=== PATIENT | female | born 1965 | race Caucasian/White ===

== ENCOUNTER → 2016-05-10 | Outpatient (CLI) | payer OTHER ==
[~2016-05-10] VITALS: Ht 154.9 cm; Wt 54.5 kg
[~2016-05-10] MED LIST: ALPR.25 PO; ALPR1TAB3 PO; BETH10TA2 PO; BETH25TA2 PO; CALC1TAB87 PO; CLON0.5T PO; DULO1CAP3 PO; ESTR2TAB PO; GABA100C4 PO; GABA400C5 PO; HYDR-3133 PO; HYDR-3580 PO; HYDR-3583 PO; LOSA25TA PO; METF500T PO; MIDAZOLAM HCL 2 MG/2 ML VIAL IVS ONE; OMEP10CA PO; ONABOTULINUMTOXINA 100 UNIT OTHER SCH; ONABOTULINUMTOXINA INJ 100 UNITS/VIAL ONE; PROM12.54 PO; PROPOFOL 200 MG/20 ML AMP IV ONE; ROPI0.5T PO; TOPI1TAB31 PO; TOPI1TAB36 PO; TOPI1TAB97 PO; ZOFR4TAB PO
[2016-05-10 09:05] VITALS: BP 126/70; PULSE 72; RESP 16; TEMP 98.9; O2SAT 100
[2016-05-10 11:09] VITALS: TEMP 97.5
[2016-05-10 11:35] VITALS: BP 146/71; PULSE 78; RESP 16; O2SAT 99
== END ==
LOC: HEND 08:34
PROVIDERS: ATTEND Internal Medicine Gastroenterology
DX: K31.84 Gastroparesis (principal); K29.50 Unspecified chronic gastritis without bleeding; K31.9 Disease of stomach and duodenum, unspecified; K44.9 Diaphragmatic hernia without obstruction or gangrene; K21.9 Gastro-esophageal reflux disease without esophagitis; R10.13 Epigastric pain; R11.2 Nausea with vomiting, unspecified
CPT/HCPCS: 43236; 43239; 88305; 99156; 99157; J0585; J2250; 88312

== ENCOUNTER 2016-05-21 16:25 | Emergency (ER) | payer OTHER ==
[~2016-05-21] VITALS: Ht 157.5 cm; Wt 54.3 kg
[~2016-05-21 16:25] MED LIST changes: -ALPR.25 PO; -ALPR1TAB3 PO; -BETH25TA2 PO; -GABA100C4 PO; -GABA400C5 PO; -HYDR-3583 PO; -MIDAZOLAM HCL 2 MG/2 ML VIAL IVS ONE; -ONABOTULINUMTOXINA 100 UNIT OTHER SCH; -ONABOTULINUMTOXINA INJ 100 UNITS/VIAL ONE; -PROPOFOL 200 MG/20 ML AMP IV ONE; -TOPI1TAB36 PO; -ZOFR4TAB PO
[2016-05-21 16:28] VITALS: BP 120/57; PULSE 85; RESP 16; TEMP 99.1; O2SAT 99
[2016-05-21] MEDS ORDERED: GABA100C4 PO (16:50)
[2016-05-21] MEDS ORDERED: PROMETHAZINE INJ 25 MG/ML VIAL IM ONE (17:00)
[2016-05-21] MEDS ORDERED: ONDANSETRON HCL 4 MG/2 ML VIAL IM ONE (17:00)
--- NOTE | 2016-05-21 17:06 | PD ---
HPI Chief Complaint: Abdominal Pain Time Seen by Provider: 16:34 Travel History International Travel<30 days: No Contact w/Intl Traveler<30days: No Traveled to known affect area: No History of Present Illness HPI The patient was seen and examined in the presence of the nurse. Patient complains of flaring of her gastroparesis. She has a chronic problem gastroparesis and follows with GI. She recently had endoscopy and had Botox injections during endoscopy for this reason. She also complains of sinus infections. She has nasal congestion and some runny nose. She just finished 7 days of antibiotics and it hasn't helped. Symptom severity is moderate PFSH Past Medical History Hx Anticoagulant Therapy: No Blood Disorders: No Anxiety: Yes Depression: Yes Heart Rhythm Problems: Yes (TACHYCARDIA) Cancer: No Cardiovascular Problems: Yes (HTN) Chest Pain: Yes Diabetes: No Diminished Hearing: No Endocrine: No Fibromyalgia: Yes Gastrointestinal Disorders: Yes (ACID REFLUX, NAUSEA; gastroparesis) GERD: Yes Glaucoma: No Genitourinary: Yes (BLADDER LIFT, INCONTINENCE) Hepatitis: No Hiatal Hernia: Yes Hypertension: Yes Immune Disorder: Yes (FIBROMYALGIA) Implanted Vascular Access Dvce: No Musculoskeletal: Yes (BACK PAIN ; FIBROMYALGIA, ARTHRITIS) Neurologic: Yes ( RESTLESS LEG SYNDROME,MIGRAINES) Psychiatric: Yes (CLAUSTROPHOBIC/ANXIETY) Reproductive: No Respiratory: Yes (SLEEP APNEA--C PAP) Immunizations Current: No Thyroid Disease: No Influenza Vaccination: No ?: Not Menopausal: Yes Past Surgical History Abdominal Surgery: Yes (EXPLORATORY LAP,APPENDECTOMY) AICD: No Body Medical Devices: INTERSTEM RIGHT BUTTOCK Cardiac Surgery: No Section: Yes Ear Surgery: No Endocrine Surgery: No Eye Surgery: No Genitourinary Surgery: Yes (BLADDER SUSP., URETHRAL DILATION) Gynecologic Surgery: Yes (; TAHBSO) Hysterectomy: Yes Joint Replacement: No Neurologic Surgery: No Oral Surgery: No Pacemaker: No Thoracic Surgery: No Other Surgery: Yes (HYSTERECTOMY 94) Social History Alcohol Use: Yes (OCC) Tobacco Use: Yes (1PPD, CIGARETTES X 31 YEARS) Substance Use: No Allergies-Medications (Allergen,Severity, Reaction): Coded Allergies: Bee Sting (Verified Allergy, Severe, Anaphylaxis, 05/21/16) Vitamin D (Verified Allergy, Severe, HIVES, 05/21/16) Desipramine (Verified Allergy, Intermediate, BLISTERS, 05/21/16) Reported Meds & Prescriptions Reported Meds & Active Scripts Active Reported Gabapentin 100 Mg Cap 100 Mg PO BID Hydroxyzine HCl 25 Mg Tab 25 Mg PO QID PRN Promethazine (Promethazine HCl) 12.5 Mg Tab 12.5 Mg PO Q4H PRN Estradiol 2 Mg Tab 2 Mg PO DAILY Omeprazole 10 Mg Cap 20 Mg PO BID Ropinirole 0.5 Mg Tab 0.5 Mg PO BID Clonazepam 0.5 Mg Tab 0.5 Mg PO HS Losartan (Losartan Potassium) 25 Mg Tab 25 Mg PO DAILY Calcium 600 with Vitamin D (Calcium Carbonate-Cholecalciferol) 600-400 mg-Unit Tab 1 Tab PO DAILY Topiramate 100 Mg Tab 125 Mg PO HS Topiramate 25 Mg Tab 25 Mg PO DAILY Duloxetine DR (Duloxetine HCl) 60 Mg Capdr 60 Mg PO DAILY Bethanechol 10 Mg Tab 10 Mg PO TID Hydrocodone-Acetaminophen 7.5-325 mg Tab 1 Tab PO TID PRN Review of Systems General / Constitutional: No: Fever HENT: No: Headaches Cardiovascular: No: Chest Pain or Discomfort Physical Exam Narrative GASTROINTESTINAL: Abdomen soft, non-tender, nondistended. Positive bowel sounds. No hepato-splenomegaly, or palpable masses. No guarding. SKIN: Inspection shows no rash or ulcers. Palpation shows no induration or nodules. NECK: Symmetrical appearance, midline trachea. No mass or crepitus. Thyroid without enlargement, tenderness, or mass. Throat clear Minimal rhinorrhea in the nares Data Data Last Documented VS Vital Signs Date Time Temp Pulse Resp B/P Pulse Ox O2 Delivery O2 Flow Rate FiO2 05/21/16 16:50 16 05/21/16 16:28 99.1 85 120/57 99 Orders Ondansetron Inj (Zofran Inj) (05/21/16 17:00) Promethazine Inj (Phenergan Inj) (05/21/16 17:00) MDM Medical Decision Making Medical Screen Exam Complete: Yes Emergency Medical Condition: Yes Medical Record Reviewed: Yes Differential Diagnosis Gastroparesis, ileus, colitis Narrative Course I have reviewed the patient's electronic medical record. Patient's abdomen is soft and benign and nontender She has normal vital signs and looks euvolemic No indication for emergent studies Gave her Zofran injection and prescription for same Diagnosis Primary Impression: Gastroparesis Additional Impression: Rhinitis Qualified Code: J31.0 - Rhinitis, unspecified type Additional Instructions: The patient was advised to follow up with their physician and return if they worsen. Med/Other Pt SpecificInfo: Prescription(s) given Disposition: 01 DISCHARGE HOME Condition: Stable Trev Herrera MD May 21, 2016 17:05
[2016-05-21] MEDS ORDERED: ZOFR4TAB PO (17:09)
[2016-07-31] MEDS ORDERED: ALPR.25 PO (11:10)
[2016-09-18] MEDS ORDERED: GABA400C5 PO (10:57)
[2016-09-18] MEDS ORDERED: TOPI1TAB36 PO (10:57)
[2016-10-11] MEDS ORDERED: HYDR-3583 PO (14:50)
[2016-10-11] MEDS ORDERED: ALPR1TAB3 PO (14:50)
[2016-10-11] MEDS ORDERED: BETH25TA2 PO (14:50)
== END 2016-05-21 17:19 | disposition home or self-care (01) ==
LOC: PHED 16:25
DX: J31.0 Chronic rhinitis (principal); K31.84 Gastroparesis; I10 Essential (primary) hypertension; R00.0 Tachycardia, unspecified; M79.7 Fibromyalgia; K21.9 Gastro-esophageal reflux disease without esophagitis; K44.9 Diaphragmatic hernia without obstruction or gangrene; G47.30 Sleep apnea, unspecified; F17.210 Nicotine dependence, cigarettes, uncomplicated
CPT/HCPCS: 96372; 99283; J2405

== ENCOUNTER 2016-06-11 16:17 | Emergency (ER) | payer OTHER ==
[~2016-06-11] VITALS: Ht 157.5 cm; Wt 54.0 kg
[~2016-06-11 16:17] MED LIST changes: +GABA100C4 PO; -METF500T PO; +ZOFR4TAB PO
[2016-06-11 16:26] VITALS: BP 113/73; PULSE 104; RESP 20; TEMP 99.5; O2SAT 100
[2016-06-11] MEDS ORDERED: SODIUM CHLORIDE 0.9% FLUSH 5 ML FLUSH IVF PRN (17:15)
[2016-06-11] MEDS ORDERED: PROCHLORPERAZINE INJ 10 MG/2 ML VIAL IVS ONE (17:15)
[2016-06-11] MEDS ORDERED: diphenhydrAMINE HCL 50 MG/ML VIAL IV PUSH ONE (17:15)
[2016-06-11] MEDS ORDERED: PANTOPRAZOLE SODIUM 40 MG VIAL IV PUSH ONE (17:30)
[2016-06-11] MEDS ORDERED: METOCLOPRAMIDE HCL 10 MG/2 ML VIAL IV PUSH ONE (17:30)
--- NOTE | 2016-06-11 17:34 | PD ---
HPI . Epigastric pain Chief Complaint: Abdominal Pain Time Seen by Provider: 17:06 Travel History International Travel<30 days: No Contact w/Intl Traveler<30days: No Traveled to known affect area: No History of Present Illness HPI The patient presents with recurrent epigastric pain radiating through to her back. Her current symptoms started last night. She reports nausea without vomiting. She denies fever. Pain is exacerbated by eating. It is slightly improved with Tums. PFSH Past Medical History Hx Anticoagulant Therapy: No Blood Disorders: No Anxiety: Yes Depression: Yes Heart Rhythm Problems: Yes (TACHYCARDIA) Cancer: No Cardiovascular Problems: Yes (HTN) Chest Pain: Yes Diabetes: No Diminished Hearing: No Endocrine: No Fibromyalgia: Yes Gastrointestinal Disorders: Yes (ACID REFLUX, NAUSEA; gastroparesis) GERD: Yes Glaucoma: No Genitourinary: Yes (BLADDER LIFT, INCONTINENCE) Hepatitis: No Hiatal Hernia: Yes Hypertension: Yes Immune Disorder: Yes (FIBROMYALGIA) Implanted Vascular Access Dvce: No Medical other: No Musculoskeletal: Yes (BACK PAIN ; FIBROMYALGIA, ARTHRITIS) Neurologic: Yes ( RESTLESS LEG SYNDROME,MIGRAINES) Psychiatric: Yes (CLAUSTROPHOBIC/ANXIETY) Reproductive: No Respiratory: Yes (SLEEP APNEA--C PAP) Immunizations Current: No Thyroid Disease: No Influenza Vaccination: No ?: Not Menopausal: Yes Past Surgical History Abdominal Surgery: Yes (EXPLORATORY LAP,APPENDECTOMY) AICD: No Body Medical Devices: INTERSTEM RIGHT BUTTOCK Cardiac Surgery: No Section: Yes Ear Surgery: No Endocrine Surgery: No Eye Surgery: No Genitourinary Surgery: Yes (BLADDER SUSP., URETHRAL DILATION) Gynecologic Surgery: Yes (; TAHBSO) Hysterectomy: Yes Joint Replacement: No Neurologic Surgery: No Oral Surgery: No Pacemaker: No Thoracic Surgery: No Other Surgery: Yes (HYSTERECTOMY 94) Social History Alcohol Use: Yes (OCC) Tobacco Use: Yes (1PPD, CIGARETTES X 31 YEARS) Substance Use: No Allergies-Medications (Allergen,Severity, Reaction): Coded Allergies: Bee Sting (Verified Allergy, Severe, Anaphylaxis, 06/11/16) Vitamin D (Verified Allergy, Severe, HIVES, 06/11/16) Desipramine (Verified Allergy, Intermediate, BLISTERS, 06/11/16) Reported Meds & Prescriptions Reported Meds & Active Scripts Active Zofran (Ondansetron HCl) 4 Mg Tab 4 Mg PO Q6HR PRN Reported Gabapentin 100 Mg Cap 100 Mg PO BID Hydroxyzine HCl 25 Mg Tab 25 Mg PO QID PRN Promethazine (Promethazine HCl) 12.5 Mg Tab 12.5 Mg PO Q4H PRN Estradiol 2 Mg Tab 2 Mg PO DAILY Omeprazole 10 Mg Cap 20 Mg PO BID Ropinirole 0.5 Mg Tab 0.5 Mg PO BID Clonazepam 0.5 Mg Tab 0.5 Mg PO HS Losartan (Losartan Potassium) 25 Mg Tab 25 Mg PO DAILY Calcium 600 with Vitamin D (Calcium Carbonate-Cholecalciferol) 600-400 mg-Unit Tab 1 Tab PO DAILY Topiramate 100 Mg Tab 100 Mg PO HS Duloxetine DR (Duloxetine HCl) 60 Mg Capdr 60 Mg PO DAILY Bethanechol 10 Mg Tab 10 Mg PO TID Hydrocodone-Acetaminophen 7.5-325 mg Tab 1 Tab PO TID PRN Review of Systems Except as stated in HPI: all other systems reviewed are Neg General / Constitutional: No: Fever, Chills Cardiovascular: Positive: Chest Pain or Discomfort (she describes heartburn) Respiratory: No: Shortness of Breath Gastrointestinal: Positive: Nausea, Abdominal Pain, Indigestion, No: Vomiting , Diarrhea Genitourinary: No: Urgency, Frequency, Dysuria Physical Exam Narrative GENERAL: Thin woman who does not appear to be in any acute distress. SKIN: Warm and dry. HEAD: Atraumatic. Normocephalic. EYES: Pupils equal and round. Sclera are anicteric. ENT: No nasal bleeding or discharge. Mucous membranes pink and moist. NECK: Trachea midline. Neck is supple. CARDIOVASCULAR: Regular rate and rhythm. Heart sounds are normal. RESPIRATORY: No accessory muscle use. Lungs are clear with full air movement throughout. GASTROINTESTINAL: Abdomen soft. Epigastric tenderness. No guarding or rebound. Normal bowel sounds. Nondistended. MUSCULOSKELETAL: No obvious deformities. No edema. NEUROLOGICAL: Awake and alert. No obvious cranial nerve deficits. Motor grossly within normal limits. Normal speech. PSYCHIATRIC: Appropriate mood and affect; insight and judgment normal. Data Data Last Documented VS Vital Signs Date Time Temp Pulse Resp B/P Pulse Ox O2 Delivery O2 Flow Rate FiO2 06/11/16 17:53 18 98 Room Air 06/11/16 17:51 88 144/71 06/11/16 16:26 99.5 Orders Complete Blood Count With Diff (06/11/16 17:06) Comprehensive Metabolic Panel (06/11/16 17:06) Lipase (06/11/16 17:06) Iv Access Insert/Monitor (06/11/16 17:06) Ecg Monitoring (06/11/16 17:06) Oximetry (06/11/16 17:06) Sodium Chloride 0.9% Flush (Ns Flush) (06/11/16 17:15) Electrocardiogram (06/11/16 17:06) Prochlorperazine Inj (Compazine Inj) (06/11/16 17:15) Diphenhydramine Inj (Benadryl Inj) (06/11/16 17:15) Metoclopramide Inj (Reglan Inj) (06/11/16 17:30) Pantoprazole Inj (Protonix Inj) (06/11/16 17:30) Lorazepam Inj (Ativan Inj) (06/11/16 18:30) Labs Laboratory Tests Test 06/11/16 17:40 White Blood Count 8.4 TH/MM3 Red Blood Count 3.97 MIL/MM3 Hemoglobin 12.4 GM/DL Hematocrit 37.2 % Mean Corpuscular Volume 93.6 FL Mean Corpuscular Hemoglobin 31.4 PG Mean Corpuscular Hemoglobin 33.5 % Concent Red Cell Distribution Width 12.9 % Platelet Count 201 TH/MM3 Mean Platelet Volume 7.6 FL Neutrophils (%) (Auto) 63.0 % Lymphocytes (%) (Auto) 29.9 % Monocytes (%) (Auto) 5.4 % Eosinophils (%) (Auto) 1.3 % Basophils (%) (Auto) 0.4 % Neutrophils # (Auto) 5.3 TH/MM3 Lymphocytes # (Auto) 2.5 TH/MM3 Monocytes # (Auto) 0.5 TH/MM3 Eosinophils # (Auto) 0.1 TH/MM3 Basophils # (Auto) 0.0 TH/MM3 CBC Comment DIFF FINAL Differential Comment Sodium Level 142 MEQ/L Potassium Level 3.4 MEQ/L Chloride Level 109 MEQ/L Carbon Dioxide Level 25.6 MEQ/L Anion Gap 7 MEQ/L Blood Urea Nitrogen 18 MG/DL Creatinine 0.80 MG/DL Estimat Glomerular Filtration 76 ML/MIN Rate Random Glucose 100 MG/DL Calcium Level 8.5 MG/DL Total Bilirubin 0.4 MG/DL Aspartate Amino Transf 16 U/L (AST/SGOT) Alanine Aminotransferase 21 U/L (ALT/SGPT) Alkaline Phosphatase 56 U/L Total Protein 6.9 GM/DL Albumin 3.5 GM/DL Lipase 91 U/L MDM Medical Decision Making Medical Screen Exam Complete: Yes Emergency Medical Condition: Yes Medical Record Reviewed: Yes (patient had a gastric emptying study done in November 2015 which showed delayed emptying. She had a myocardial perfusion scan also in November which was normal and showed an ejection fraction greater than 70% . She had an EGD done on November 17, 2015 which showed reflux esophagitis and gastritis. There was no mention of stenosis.) Interpretation(s) EKG shows a normal sinus rhythm with no ST segment elevation or depression. Differential Diagnosis Differential diagnosis of abdominal pain includes but is not limited to gastritis, pancreatitis, hepatitis, gastroenteritis, gallbladder disease, constipation, urinary retention, UTI, peptic ulcer disease, diverticulitis or appendicitis Narrative Course Patient presents with recurrent epigastric pain radiating through to her back. She has a diagnosis of gastroparesis. She is status post Botox injections in her stomach for the gastroparesis. The patient takes numerous medications. The ones pertinent to her current complaint include hydrocodone 7.5 mg every 6 hours as needed, Prilosec, Zofran, Phenergan. CBC & BMP Diagram 06/11/16 17:40 LFTs and lipase were normal. Patient reports no relief in her symptoms with Reglan and Protonix. The patient now appears to be resting comfortably following Ativan. I have not found an acute problem here tonight. She seems to be having an acute exacerbation of a chronic problem. She needs to follow with her etiquette teacher. Diagnosis Primary Impression: Epigastric pain Patient Instructions: Epigastric Pain (ED), General Instructions Disposition: 01 DISCHARGE HOME Condition: Stable Bronwyn Mathew MD Jun 11, 2016 17:34
[2016-06-11 17:49] LABS: AUTOMATED NEUTROPHIL # 5.3 TH/MM3 (1.8-7.7); BASOPHIL % 0.4 % (0.0-2.0); EOSINOPHIL # 0.1 TH/MM3 (0-0.4); EOSINOPHIL % 1.3 % (0.0-4.0); HEMATOCRIT 37.2 % (35.0-46.0); HEMO FLAGS DIFF FINAL; LYMPH % 29.9 % (9.0-44.0); LYMPHOCYTE # 2.5 TH/MM3 (1.0-4.8); MEAN CELL VOLUME 93.6 FL (80.0-100.0); MEAN CORPUSCULAR HEMOGLOBIN 31.4 PG (27.0-34.0); MEAN CORPUSCULAR HGB CONC 33.5 % (32.0-36.0); MONO % 5.4 % (0.0-8.0); PLATELET COUNT 201 TH/MM3 (150-450); RED BLOOD COUNT 3.97 MIL/MM3 (4.00-5.30); RED CELL DISTRIBUTION WIDTH 12.9 % (11.6-17.2); WHITE BLOOD COUNT 8.4 TH/MM3 (4.0-11.0)
[2016-06-11 17:51] VITALS: BP 144/71; PULSE 88; RESP 18; O2SAT 98
[2016-06-11 17:53] VITALS: RESP 18; O2SAT 98
[2016-06-11 17:57] LABS: CHLORIDE 109 MEQ/L (98-107); POTASSIUM 3.4 MEQ/L (3.5-5.1); SODIUM (NA) 142 MEQ/L (136-145)
[2016-06-11 18:01] LABS: ANION GAP 7 MEQ/L (5-15); BICARBONATE 25.6 MEQ/L (21.0-32.0); BLOOD UREA NITROGEN 18 MG/DL (7-18)
[2016-06-11 18:04] LABS: ALT (GPT) 21 U/L (10-53); AST (GOT) 16 U/L (15-37); GLOMERULAR FILTRATION RATE 76 ML/MIN (>89)
[2016-06-11 18:05] LABS: TOTAL BILIRUBIN ADULT 0.4 MG/DL (0.2-1.0)
[2016-06-11 18:07] LABS: ALKALINE PHOSPHATASE 56 U/L (45-117)
[2016-06-11] MEDS ORDERED: LORazepam 2 MG/ML VIAL IV PUSH ONE (18:30)
[2016-06-11 19:15] VITALS: BP 135/74; PULSE 83; RESP 18; O2SAT 98
--- NOTE | 2016-06-12 12:39 | EKG ---
Date Performed: 06/11/2016 Time Performed: 17:19:24 PTAGE: 50 years EKG: Sinus rhythm ST junctional depression is nonspecific Borderline ECG Compared to prior tracing no significant love ge PREVIOUS TRACING : 02/29/2016 16.26 DOCTOR: Len Pinto Interpretating Date/Time 06/12/2016 12:35:18
[2016-07-31] MEDS ORDERED: ALPR.25 PO (11:10)
[2016-09-18] MEDS ORDERED: TOPI1TAB36 PO (10:57)
[2016-09-18] MEDS ORDERED: GABA400C5 PO (10:57)
[2016-10-11] MEDS ORDERED: ALPR1TAB3 PO (14:50)
[2016-10-11] MEDS ORDERED: HYDR-3583 PO (14:50)
[2016-10-11] MEDS ORDERED: BETH25TA2 PO (14:50)
== END 2016-06-11 20:07 | disposition home or self-care (01) ==
LOC: PHED 16:17
DX: R10.13 Epigastric pain (principal)
CPT/HCPCS: 80053; 83690; 85025; 93005; 96374; 96375; 99284; C9113; J2060; J2765

== ENCOUNTER → 2016-10-12 | Day surgery (SDC) | payer OTHER ==
[~2016-10-12] VITALS: Ht 157.5 cm; Wt 54.1 kg
[~2016-10-12] MED LIST changes: +*ONDANSETRON 4 MG VIAL PERIprocedural Use ONLY ONE; +*morphine SULFATE 8 MG/ML PERIprocedure ONLY ONE; +ALPR1TAB3 PO; +BELLADONNA ALKALOIDS/OPIUM 60 MG SUPP RECTAL ONE; +BELLADONNA ALKALOIDS/OPIUM 60 MG SUPP RECTAL SCH; -BETH10TA2 PO; +BETH25TA2 PO; +CHLORHEXIDINE GLUCONATE 2 % 1 PACK (2 CLOTHS) TOPICAL PRN; -CLON0.5T PO; +DEXAMETHASONE SOD PHOS 4 MG/ML VIAL ONE; +DO NOT ADM ANY ANTICOAGULANT DRUGS PRN; +FAMOTIDINE 20 MG/2 ML VIAL ONE; -GABA100C4 PO; +GABA400C5 PO; -HYDR-3133 PO; -HYDR-3580 PO; +HYDR-3583 PO; +HYDROmorphone HCL PF 2 MG/ML VIAL ONE; +INSULIN HUMAN REGULAR 1,000 UNITS/10 ML VIAL SQ PRN; +LACTATED RINGER'S 1000 ML INJ 1,000 ML IV ONE; +LACTATED RINGER'S 1000 ML IV PRN; +METOPROLOL TARTRATE 25 MG TAB PO PRN; +MIDAZOLAM HCL 2 MG/2 ML VIAL ONE; -OMEP10CA PO; +ONABOTULINUMTOXINA INJ 100 UNITS/VIAL SCH; +ONDANSETRON HCL 4 MG/2 ML VIAL IV PUSH ONE; +ONDANSETRON HCL 4 MG/2 ML VIAL IV PUSH PRN; +POVIDONE IODINE 5% (ANTISEPSIS KIT) 4 APPLICATIONS EACH NARE PRN; +PROPOFOL 200 MG/20 ML AMP IV ONE; -ROPI0.5T PO; +SODIUM CHLORID 0.9% 500 ML IV PRN; +SODIUM CHLORIDE 0.9% 20 ML VIAL ONE; -TOPI1TAB31 PO; +TOPI1TAB36 PO; -TOPI1TAB97 PO; +ceFAZolin 1,000 MG/NS 100 ML IV SCH; +ePHEDrine/NS 25 MG/5 ML SYR IV ONE; +fentaNYL CITRATE 250 MCG/5 ML AMP ONE
[2016-10-12 06:21] VITALS: BP 142/86; PULSE 72; RESP 18; TEMP 99; O2SAT 98
[2016-10-12 06:25] LABS: AUTOMATED NEUTROPHIL # 3.7 TH/MM3 (1.8-7.7); BASOPHIL % 0.7 % (0.0-2.0); EOSINOPHIL # 0.2 TH/MM3 (0-0.4); EOSINOPHIL % 2.4 % (0.0-4.0); HEMATOCRIT 38.9 % (35.0-46.0); HEMO FLAGS DIFF FINAL; LYMPH % 35.9 % (9.0-44.0); LYMPHOCYTE # 2.5 TH/MM3 (1.0-4.8); MEAN CELL VOLUME 96.9 FL (80.0-100.0); MONO % 7.8 % (0.0-8.0); NEUT % 53.2 % (16.0-70.0); PLATELET COUNT 207 TH/MM3 (150-450); RED BLOOD COUNT 4.02 MIL/MM3 (4.00-5.30); RED CELL DISTRIBUTION WIDTH 13.7 % (11.6-17.2)
--- NOTE | 2016-10-12 08:34 | PD.OP ---
Operative Report Date of Surgery: Oct 12, 2016 Preoperative Diagnosis: Overactive bladder Postoperative Diagnosis: Same Procedure: Cystoscopy with Botox injection to the bladder wall Anesthesia: Gen. LMA Surgeon: Massimo Smith Business Services Tech(s): None Resident Surgeon: None Operation and Findings: 50-year-old female with history of overactive bladder. She said InterStim therapy in the past and failed multiple anticholinergics. She's here today to undergo Botox injection to the bladder. Risk and benefits were discussed preoperatively and she was willing to proceed. Patient was brought to the operating room and placed in the dorsal lithotomy position. She was prepped and draped in usual sterile fashion and received preprocedure antibiotics as well as general LMA anesthesia. 19 [place] cystoscope was inserted in the bladder morocho cystoscopy did not reveal any abnormalities. Using the Coloplast needle for bladder wall injection, Botox was injected into the posterior bladder wall in 2 rows. A total of 200 mg Botox was utilized. There were no complications and she tolerated procedure well. There is no bleeding at the end of the procedure. She was awoken and transferred [facility] stable condition. She'll follow-up in the office in 2-3 months. Massimo Smith DO Oct 12, 2016 08:34
[2016-10-12 10:16] VITALS: BP 110/54; PULSE 64; RESP 16; TEMP 97.3; O2SAT 94
== END | disposition home or self-care (01) ==
LOC: HSDC 05:31
PROVIDERS: ATTEND Urology
DX: N32.81 Overactive bladder (principal)
CPT/HCPCS: 00910; 52287; 85025; J0585; J0690; J1100; J1170; J2250; J2270; J2405; J3010; J7120

== ENCOUNTER 2016-11-20 16:18 | Observation (INO) | payer OTHER ==
[~2016-11-20] VITALS: Ht 162.6 cm; Wt 52.0 kg
[~2016-11-20 16:18] MED LIST changes: -*ONDANSETRON 4 MG VIAL PERIprocedural Use ONLY ONE; -*morphine SULFATE 8 MG/ML PERIprocedure ONLY ONE; -BELLADONNA ALKALOIDS/OPIUM 60 MG SUPP RECTAL ONE; -BELLADONNA ALKALOIDS/OPIUM 60 MG SUPP RECTAL SCH; -CALC1TAB87 PO; -CHLORHEXIDINE GLUCONATE 2 % 1 PACK (2 CLOTHS) TOPICAL PRN; -DEXAMETHASONE SOD PHOS 4 MG/ML VIAL ONE; -DO NOT ADM ANY ANTICOAGULANT DRUGS PRN; -FAMOTIDINE 20 MG/2 ML VIAL ONE; -HYDROmorphone HCL PF 2 MG/ML VIAL ONE; -INSULIN HUMAN REGULAR 1,000 UNITS/10 ML VIAL SQ PRN; -LACTATED RINGER'S 1000 ML INJ 1,000 ML IV ONE; -LACTATED RINGER'S 1000 ML IV PRN; -METOPROLOL TARTRATE 25 MG TAB PO PRN; -MIDAZOLAM HCL 2 MG/2 ML VIAL ONE; -ONABOTULINUMTOXINA INJ 100 UNITS/VIAL SCH; -ONDANSETRON HCL 4 MG/2 ML VIAL IV PUSH ONE; -ONDANSETRON HCL 4 MG/2 ML VIAL IV PUSH PRN; -POVIDONE IODINE 5% (ANTISEPSIS KIT) 4 APPLICATIONS EACH NARE PRN; -PROM12.54 PO; -PROPOFOL 200 MG/20 ML AMP IV ONE; -SODIUM CHLORID 0.9% 500 ML IV PRN; -SODIUM CHLORIDE 0.9% 20 ML VIAL ONE; -ceFAZolin 1,000 MG/NS 100 ML IV SCH; -ePHEDrine/NS 25 MG/5 ML SYR IV ONE; -fentaNYL CITRATE 250 MCG/5 ML AMP ONE
[2016-11-20 17:11] VITALS: BP 134/79; PULSE 82; RESP 28; O2SAT 100
[2016-11-20] MEDS ORDERED: SODIUM CHLOR 0.9% 1000 ML INJ 1,000 ML IV ONE (17:14)
[2016-11-20 17:23] VITALS: BP 134/79; PULSE 74; RESP 21; O2SAT 99
--- NOTE | 2016-11-20 17:27 | PD ---
HPI Chief Complaint: Neuro Symptoms/ Deficits Time Seen by Provider: 17:14 Travel History International Travel<30 days: No Contact w/Intl Traveler<30days: No Traveled to known affect area: No History of Present Illness HPI This is a 51-year-old female who presents from her hand surgeon's office after she had an acute episode of confusion. According to the , she was being seen and evaluated at Dr. Sharp's office for a follow up appointment for her carpal tunnel surgery. She [place] through the exam developed acute confusion and did not recognize anyone and even did not recognize her . reports that upon arrival she seemed much less agitated and confused however is still not at her baseline level. She does know the day of week, her name, where she is area she did not know the current president but was able to tell me that Dami was the previous president. She also thought it was 2019. She is holding her arm in a flexed position stating that it is painful. states that over the last 2 days she is complaining the pain from her shoulder up to her back of her neck. He also reported that she was having pain down her arm on the right side. He attributed this to her carpal tunnel surgery. He reports that she had had a CT scan done in the past that he remarks was told that she may have had previous "TIAs". She is on antidepressant medicines. She also is being treated for restless leg syndrome. Please note that one of our nurses whose friends with her family, spoke with the patient last night. She states that she Repeating the same thing over and over again. She thought at that time it was odd but did not put too and 2 together. Patient was prescribed duloxetine was taking it daily however her psychiatrist had decreased it to once every other day. states that she had not taken any since of last week. He states that they did cigar packer and picker the medication today and she took her first dose since . PFSH Past Medical History Hx Anticoagulant Therapy: No Blood Disorders: No Anxiety: Yes Depression: Yes Heart Rhythm Problems: Yes (TACHYCARDIA) Cancer: No Cardiovascular Problems: Yes (HTN) Chest Pain: Yes Diabetes: No Diminished Hearing: No Endocrine: No Fibromyalgia: Yes Gastrointestinal Disorders: Yes (ACID REFLUX, NAUSEA; gastroparesis) GERD: Yes Glaucoma: No Genitourinary: Yes (BLADDER LIFT, INCONTINENCE) Hepatitis: No Hiatal Hernia: Yes Hypertension: Yes Immune Disorder: Yes (FIBROMYALGIA) Implanted Vascular Access Dvce: No Musculoskeletal: Yes (BACK PAIN ; FIBROMYALGIA, ARTHRITIS) Neurologic: Yes ( RESTLESS LEG SYNDROME,MIGRAINES) Psychiatric: Yes (CLAUSTROPHOBIC/ANXIETY) Reproductive: No Respiratory: Yes (SLEEP APNEA--C PAP) Immunizations Current: No Thyroid Disease: No Menopausal: Yes Past Surgical History Abdominal Surgery: Yes (EXPLORATORY LAP,APPENDECTOMY) AICD: No Body Medical Devices: INTERSTEM RIGHT BUTTOCK Cardiac Surgery: No Section: Yes Ear Surgery: No Endocrine Surgery: No Eye Surgery: No Genitourinary Surgery: Yes (BLADDER SUSP., URETHRAL DILATION, INTERSTEM PLACEMENT AND REMOVAL) Gynecologic Surgery: Yes (; TAHBSO) Hysterectomy: Yes Joint Replacement: No Neurologic Surgery: No Oral Surgery: No Pacemaker: No Thoracic Surgery: No Other Surgery: Yes (HYSTERECTOMY 94) Social History Alcohol Use: Yes (OCC) Tobacco Use: Yes (1PPD, CIGARETTES X 31 YEARS) Substance Use: No Allergies-Medications (Allergen,Severity, Reaction): Coded Allergies: Bee Sting (Verified Allergy, Severe, Anaphylaxis, 10/12/16) Vitamin D (Verified Allergy, Severe, HIVES, 10/12/16) Desipramine (Verified Allergy, Intermediate, BLISTERS, 10/12/16) Reported Meds & Prescriptions Reported Meds & Active Scripts Active Zofran (Ondansetron HCl) 4 Mg Tab 4 Mg PO Q6HR PRN Reported Bethanechol 25 Mg Tab 25 Mg PO Q8HR Hydrocodone-Acetaminophen 10-325 mg Tab 1 Tab PO Q4H PRN Alprazolam 1 Mg Tab 1 Mg PO BID Topiramate 50 Mg Tab 100 Mg PO HS Gabapentin 400 Mg Cap 400 Cap PO BID Estradiol 2 Mg Tab 2 Mg PO DAILY Losartan (Losartan Potassium) 25 Mg Tab 25 Mg PO DAILY Duloxetine DR (Duloxetine HCl) 60 Mg Capdr 60 Mg PO DAILY Review of Systems ROS Limitations: Clinical Condition Except as stated in HPI: all other systems reviewed are Neg Eyes: No: Diploplia HENT: Positive: Headaches, Neck Pain (right sided and up her right lateral neck from her shoulder) Cardiovascular: No: Chest Pain or Discomfort, Palpitations Respiratory: No: Cough, Shortness of Breath Gastrointestinal: No: Nausea, Vomiting, Diarrhea Genitourinary: No: Dysuria, Incontinence Musculoskeletal: Positive: Pain (right arm and shoulder pain), No: Weakness Neurologic: Positive: Headache, Change in Mentation, No: Weakness, Incontinence, Seizures Psychiatric: Positive: Disorder of Thought (acute onset) Physical Exam Narrative GENERAL: Well-developed well-nourished female in no acute respiratory distress. The patient appears agitated and confused. SKIN: Focused skin assessment warm/dry. HEAD: Atraumatic. Normocephalic. EYES: Pupils equal and round. No scleral icterus. No injection or drainage. ENT: No nasal bleeding or discharge. Mucous membranes pink and moist. NECK: Trachea midline. Supple. CARDIOVASCULAR: Regular rate and rhythm. No murmur appreciated. RESPIRATORY: No accessory muscle use. Clear to auscultation. Breath sounds equal bilaterally. GASTROINTESTINAL: Abdomen soft, non-tender, nondistended. MUSCULOSKELETAL: No obvious deformities. No clubbing. No cyanosis. No edema. NEUROLOGICAL: Awake and confused. No obvious cranial nerve deficits. Motor grossly within normal limits. Normal speech. Patient holding her arm flexed however she is observed moving it but she states it's painful. PSYCHIATRIC: Appears acutely agitated. Data Data Last Documented VS Vital Signs Date Time Temp Pulse Resp B/P Pulse Ox O2 Delivery O2 Flow Rate FiO2 11/20/16 17:55 72 28 99 Room Air 11/20/16 17:23 134/79 Orders Diet Npo (11/20/16 Dinner) Activity Bed Rest (11/20/16 ) Electrocardiogram (11/20/16 ) I-Stat Creatinine (11/20/16 17:14) I-Stat Profile (11/20/16 17:14) Prothrombin Time / Inr (Pt) (11/20/16 17:14) Act Partial Throm Time (Ptt) (11/20/16 17:14) Complete Blood Count With Diff (11/20/16 17:14) Fibrinogen (11/20/16 17:14) Creatine Kinase (Cpk) (11/20/16 17:14) Troponin I (11/20/16 17:14) Ua Includes Microscopic (11/20/16 17:14) Drug Screen, Random Urine (11/20/16 17:14) Type And Screen (11/20/16 17:14) Ct Brain W/O Iv Contrast(Rout) (11/20/16 ) Beta Hcg (Quant/Titer) (11/20/16 17:14) Consult Neurology (11/20/16 ) Blood Glucose (11/20/16 17:14) Ecg Monitoring (11/20/16 17:14) Neuro Checks Q2HX12,Q4H (11/20/16 17:14) Nursing Bedside Swallow Assess .ONCE (11/20/16 17:14) Iv Access Insert/Monitor (11/20/16 17:14) NPO (11/20/16 17:14) Oximetry (11/20/16 17:14) Oxygen Administration (11/20/16 17:14) Sodium Chlor 0.9% 1000 Ml Inj (Ns 1000 M (11/20/16 17:14) Resp Oxygen Yahir C Titrat 1-4 L (11/20/16 17:14) Cath For Specimen (11/20/16 17:14) (Hub Use Only)Inp Phy Cons/Ref (11/20/16 ) Mri Brain W/O Contrast (11/20/16 17:55) Mra Brain W/O Contrast (Cow) (11/20/16 17:55) Acetaminophen (Tylenol) (11/20/16 19:00) Urinary Catheter Insert/Apply (11/20/16 18:49) Admit Order (Ed Use Only) (11/20/16 19:15) Labs Laboratory Tests Test 11/20/16 11/20/16 11/20/16 17:16 17:18 17:50 White Blood Count 8.2 TH/MM3 Red Blood Count 3.78 MIL/MM3 Hemoglobin 12.6 GM/DL Hematocrit 36.5 % Mean Corpuscular Volume 96.7 FL Mean Corpuscular Hemoglobin 33.2 PG Mean Corpuscular Hemoglobin 34.4 % Concent Red Cell Distribution Width 13.9 % Platelet Count 183 TH/MM3 Mean Platelet Volume 9.1 FL Neutrophils (%) (Auto) 61.3 % Lymphocytes (%) (Auto) 29.6 % Monocytes (%) (Auto) 7.0 % Eosinophils (%) (Auto) 1.8 % Basophils (%) (Auto) 0.3 % Neutrophils # (Auto) 5.0 TH/MM3 Lymphocytes # (Auto) 2.4 TH/MM3 Monocytes # (Auto) 0.6 TH/MM3 Eosinophils # (Auto) 0.2 TH/MM3 Basophils # (Auto) 0.0 TH/MM3 CBC Comment DIFF FINAL Differential Comment Prothrombin Time 9.7 SEC Prothromb Time International 0.9 RATIO Ratio Activated Partial 24.8 SEC Thromboplast Time Fibrinogen 248 mg/dL Bedside Hemoglobin 13.3 G/DL Bedside Hematocrit 39.0 % Bedside Sodium 142 MMOL/L Bedside Potassium 3.5 MMOL/L Bedside Chloride 110 MMOL/L Bedside Blood Urea Nitrogen 15 MG/DL Bedside Creatinine 0.8 MG/DL Bedside Glucose 85 MG/DL Total Creatine Kinase 36 U/L Troponin I LESS THAN 0.02 NG/ML Human Chorionic Gonadotropin, LESS THAN 1 Quant MIU/ML Urine Color YELLOW Urine Turbidity CLEAR Urine pH 5.0 Urine Specific [place] 1.016 Urine Protein NEG mg/dL Urine Glucose (UA) NEG mg/dL Urine Ketones NEG mg/dL Urine Occult Blood MOD Urine Nitrite NEG Urine Bilirubin NEG Urine Urobilinogen LESS THAN 2.0 MG/DL Urine Leukocyte Esterase NEG Urine RBC 7 /hpf Urine Squamous Epithelial 1 /hpf Cells Urine Opiates Screen POS Urine Barbiturates Screen NEG Urine Amphetamines Screen NEG Urine Benzodiazepines Screen POS Urine Cocaine Screen NEG Urine Cannabinoids Screen NEG MDM Medical Decision Making Medical Screen Exam Complete: Yes Emergency Medical Condition: Yes Differential Diagnosis CVA versus TIA versus mood disorder Narrative Course This is a 51-year-old female who presents as a stroke alert. The patient was at her hand surgeon's office for follow up when she had acute onset of confusion. The patient has no focal motor deficits. She was confused and altered. There is unclear history whether she had confusion yesterday or not. states that she been complaining of a head pain and neck pain for the last few days. The patient has improved. Both myself and Dr. Sumner, on-call neurologist do not feel as though she is a TPA candidate at this time. She will be admitted to the [facility] service. There is an MRI and MRA of the brain ordered. I feel there is a possibility this could be medication related. Patient was recently restarted back on her duloxetine after not having it since of last week. Diagnosis Primary Impression: Altered sensorium Additional Impressions: History of hypertension history of restless leg syndrome. Uzair Aguero MD Nov 20, 2016 17:27
[2016-11-20 17:38] VITALS: O2SAT 100
[2016-11-20 17:38] LABS: I-STAT POTASSIUM 3.5 MMOL/L (3.5-4.9); I-STAT SODIUM 142 MMOL/L (138-146)
--- NOTE | 2016-11-20 17:46 | RADRPT ---
EXAM DATE/TIME: 11/20/2016 17:30 [facility] COMPARISON: CT BRAIN W/O CONTRAST, December 08, 2015, 19:18. INDICATIONS : Stroke alert, cephalgia and confusion today. RADIATION DOSE: 56.35 CTDIvol (mGy) This report was called by Ekta to Dr. Aguero at 1744 MEDICAL HISTORY : Hypertension. fibromyalgia, tachycardia SURGICAL HISTORY : None. ENCOUNTER: Initial ACUITY: 1 day PAIN SCALE: 7/10 LOCATION: Bilateral head TECHNIQUE: Multiple contiguous axial images were obtained of the head. Using automated exposure control and adj ustment of the mA and/or kV according to patient size, radiation dose was kept as low as reasonably a chievable to obtain optimal diagnostic quality images. DICOM format image data is available electro nically for review and comparison. FINDINGS: CEREBRUM: The ventricles are normal for age. No evidence of midline shift, mass lesion, hemorrhage or acute in farction. Large and dilated perivascular spaces are again identified in the basal ganglia. No extra-a xial fluid collections are seen. POSTERIOR FOSSA: The cerebellum and brainstem are intact. The 4th ventricle is midline. The cerebellopontine angle i s unremarkable. EXTRACRANIAL: The visualized portion of the orbits is intact. SKULL: The calvaria is intact. No evidence of skull fracture. CONCLUSION: No evidence of acute infarct, hemorrhage, mass or edema. Stable large dilated perivascular spaces in the basal ganglia. Hubert Montero MD on November 20, 2016 at 17:42 Board Certified Radiologist. This report was verified electronically.
[2016-11-20 17:59] LABS: BETA HCG QUANT LESS THAN 1 MIU/ML (0-5)
[2016-11-20 18:00] LABS: CREATINE KINASE 36 U/L (26-192)
[2016-11-20 18:01] LABS: BASOPHIL % 0.3 % (0.0-2.0); EOSINOPHIL # 0.2 TH/MM3 (0-0.4); EOSINOPHIL % 1.8 % (0.0-4.0); HEMATOCRIT 36.5 % (35.0-46.0); HEMO FLAGS DIFF FINAL; LYMPH % 29.6 % (9.0-44.0); LYMPHOCYTE # 2.4 TH/MM3 (1.0-4.8); MEAN CELL VOLUME 96.7 FL (80.0-100.0); MEAN CORPUSCULAR HEMOGLOBIN 33.2 PG (27.0-34.0); MEAN CORPUSCULAR HGB CONC 34.4 % (32.0-36.0); NEUT % 61.3 % (16.0-70.0); PLATELET COUNT 183 TH/MM3 (150-450); RED BLOOD COUNT 3.78 MIL/MM3 (4.00-5.30); RED CELL DISTRIBUTION WIDTH 13.9 % (11.6-17.2); WHITE BLOOD COUNT 8.2 TH/MM3 (4.0-11.0)
[2016-11-20 18:09] LABS: APTT (PATIENT) 24.8 SEC (24.3-30.1); INTERNATIONAL NORMALIZED RATIO 0.9 RATIO; PROTHROMBIN TIME - PATIENT 9.7 SEC (9.8-11.6)
[2016-11-20 18:23] LABS: BLOOD, URINE MOD (NEG); GLUCOSE,URINE NEG (NEG); KETONE, URINE NEG (NEG); NITRITE,URINE NEG (NEG); SQUAMOUS EPITHELIAL CELL URINE 1 /hpf (0-5); URINE COLOR YELLOW (YELLW/STRAW)
[2016-11-20 18:25] LABS: AMPHETAMINE, URINE NEG (NEG); BARBITURATES, URINE NEG (NEG); COCAINE, URINE NEG (NEG)
[2016-11-20] MEDS ORDERED: ACETAMINOPHEN 325 MG TAB PO ONE (19:00)
[2016-11-20] MEDS ORDERED: HYDROmorphone HCL PF 1 MG/ML VIAL IVS ONE (19:45)
[2016-11-20 20:30] VITALS: BP 142/79; PULSE 70; RESP 21; O2SAT 99
--- NOTE | 2016-11-20 20:46 | HHI.HP ---
HPI Service [facility] Hospitalists Primary Care Physician Unknown Admission Diagnosis altered sensorium, r/o CVA vs TIA Chief Complaint: confusion, agitation Travel History International Travel<30 Days: No Contact w/Intl Traveler <30 Da: No Traveled to Known Affected Are: No History of Present Illness This is a 51-year-old female with history of major depression, PTSD and peripheral neuropathy of unknown etiology who presents from her hand surgeon's office after she had an acute episode of confusion. Much of the history is obtained from the and ER physician as patient is still somewhat confused about the events of the last couple of days. According to the , she was being seen and evaluated at Dr. Sharp's office for a follow up appointment for her carpal tunnel surgery and questionable right ulnar nerve dysfunction. Reportedly midway through the exam she developed acute confusion and did not recognize anyone and even did not recognize her . She reportedly wanted to leave the room to go see her mother or some other family member. reports that upon arrival in the ER she seemed much less agitated and confused however is still not at her baseline level. She is holding her right arm in a flexed position stating that it is painful. This is chronic per the . states that over the last 2 days she is complaining the pain from her shoulder up to her back of her neck. He also reported that she was having pain down her arm on the right side. He attributed this to her carpal tunnel surgery. She is on antidepressant and anxiolytic medicines. Recently her duloxetine was switched to every other day by her psychiatrist but she continued to take it daily since she ran out of the medicine approximate 5 days ago. She also is being treated for restless leg syndrome. Reportedly had some perseveration of freezes yesterday. Patient's main complaint now is a right-sided headache which she's had for approximately 3 -4 days. Patient's does confirm that she has had this headache for 3-4 days and has had similar headaches in the past. She is on prophylactic medication for chronic migraine. On exam patient appears somewhat agitated and continues to move her left leg which she attributes to her restless leg syndrome. She is moving her left leg more because she is trying to distract her cell from the current headache she has. She denies any illicit drug use except for occasional marijuana which she has not used in quite some time. She also states that she has not had any alcohol in the last 5 days but generally does drink probably 2 beers each night. Review of Systems ROS Limitations: Altered Mental Status, Poor Historian Constitutional: DENIES: Diaphoretic episodes, Fatigue, Fever, Weight gain, Weight loss, Chills, Dizziness, Change in appetite, Night Sweats Ears, nose, mouth, throat: DENIES: Tinnitus, Hearing loss, Vertigo, Nasal discharge, Oral lesions, Throat pain, Hoarseness, Ear Pain, Running Nose, Epistaxis, Sinus Pain, Toothache, Odynophagia Respiratory: DENIES: Apneas, Cough, Snoring, Wheezing, Hemoptysis, Sputum production, Shortness of breath Cardiovascular: DENIES: Chest pain, Palpitations, Syncope, Dyspnea on Exertion , PND, Lower Extremity Edema, Orthopnea, Claudication Gastrointestinal: COMPLAINS OF: Nausea Musculoskeletal: COMPLAINS OF: Joint pain, Back pain Integumentary: DENIES: Abnormal pigmentation, Pruritus, Rash, Nail changes, Breast masses, Breast skin changes Immunologic/allergic: DENIES: Eczema, Urticaria Neurologic: COMPLAINS OF: Headache Psychiatric: COMPLAINS OF: Anxiety, Mood changes, Depression, Agitation Past Family Social History Past Medical History Major depression Generalized anxiety disorder PTSD Atypical facial pain Carpal tunnel syndrome Atypical chest pain Chronic recurring headaches Degenerative disc disease of lumbar spine GERD Gastroparesis Long-term use of opiates Nicotine dependence Osteopenia Migraine headaches Past Surgical History Anterior colporrhaphy for pelvic relaxation Appendectomy Arthroscopy left knee Bladder suspension surgery Tubal ligation Hysterectomy Paravertebral nerve blocks Reported Medications Zofran (Ondansetron HCl) 4 Mg Tab 4 Mg PO Q6HR PRN Bethanechol 25 Mg Tab 25 Mg PO Q8HR Hydrocodone-Acetaminophen 10-325 mg Tab 1 Tab PO Q4H PRN Alprazolam 1 Mg Tab 1 Mg PO BID Topiramate 50 Mg Tab 100 Mg PO HS Gabapentin 400 Mg Cap 400 Cap PO BID Estradiol 2 Mg Tab 2 Mg PO DAILY Losartan (Losartan Potassium) 25 Mg Tab 25 Mg PO DAILY Duloxetine DR (Duloxetine HCl) 60 Mg Capdr 60 Mg PO DAILY Allergies: Coded Allergies: Bee Sting (Verified Allergy, Severe, Anaphylaxis, 10/12/16) Vitamin D (Verified Allergy, Severe, HIVES, 10/12/16) Desipramine (Verified Allergy, Intermediate, BLISTERS, 10/12/16) Family History Reportedly there is diabetes, alcoholism in the family Some family member had an astrocytoma of the brain Her 30-year-old son apparently has some unusual neurologic phenomena which has occurred approximately 3 times in his adult life where is he has periods of agitation and confusion similar to her current presentation Social History Reports drinking 2 beers per night but has not had any alcohol for 5 days Reports exercising regularly She had been for 25 years Moved here from [place] approximately 40 years ago Smokes one pack of cigarettes per day which she has done for 10 years, prior to that smoked only sporadically She is currently unemployed but 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 She is able to focus when asked questions directly but is still somewhat confused about today's date and the current basting puller. She also is confused about whether or not she actually saw the hand doctor today although her says she clearly did see a physician and speak with her. SKIN: No rashes, ecchymoses or lesions. Cool and dry. HEAD: Atraumatic. Normocephalic. No temporal or scalp tenderness. EYES: Pupils equal round and reactive. Extraocular motions intact. No scleral icterus. No injection or drainage. No nystagmus. ENT: Nose without bleeding, purulent drainage or septal hematoma. Throat without erythema, tonsillar hypertrophy or exudate. Uvula midline. Airway patent. NECK: Trachea midline. No JVD or lymphadenopathy. Supple, nontender, no meningeal signs. CARDIOVASCULAR: Regular rate and rhythm without murmurs, gallops, or rubs. RESPIRATORY: Clear to auscultation. Breath sounds equal bilaterally. No wheezes , rales, or rhonchi. GASTROINTESTINAL: Abdomen soft, non-tender, nondistended. No hepato-splenomegaly , or palpable masses. No guarding. MUSCULOSKELETAL: Extremities without clubbing, cyanosis, or edema. Right hand with slight contracture of the fourth and fifth fingers and some tenderness to palpation over the right fifth finger. No calf tenderness. NEUROLOGICAL: Awake and alert. Oriented to place but confused about some of the recent events. Cranial nerves II through XII intact. Motor and sensory grossly within normal limits. Five out of 5 muscle strength in all muscle groups the exception of some weakness in the right fourth and fifth fingers due to pain as noted. Normal speech. Laboratory Laboratory Tests Test 11/20/16 11/20/16 11/20/16 11/20/16 17:00 17:16 17:18 17:50 Blood Type O POSITIVE Antibody Screen NEGATIVE White Blood Count 8.2 Red Blood Count 3.78 Hemoglobin 12.6 Hematocrit 36.5 Mean Corpuscular Volume 96.7 Mean Corpuscular Hemoglobin 33.2 Mean Corpuscular Hemoglobin 34.4 Concent Red Cell Distribution Width 13.9 Platelet Count 183 Mean Platelet Volume 9.1 Neutrophils (%) (Auto) 61.3 Lymphocytes (%) (Auto) 29.6 Monocytes (%) (Auto) 7.0 Eosinophils (%) (Auto) 1.8 Basophils (%) (Auto) 0.3 Neutrophils # (Auto) 5.0 Lymphocytes # (Auto) 2.4 Monocytes # (Auto) 0.6 Eosinophils # (Auto) 0.2 Basophils # (Auto) 0.0 CBC Comment DIFF FINAL Differential Comment Prothrombin Time 9.7 Prothromb Time International 0.9 Ratio Activated Partial 24.8 Thromboplast Time Fibrinogen 248 Bedside Hemoglobin 13.3 Bedside Hematocrit 39.0 Bedside Sodium 142 Bedside Potassium 3.5 Bedside Chloride 110 Bedside Blood Urea Nitrogen 15 Bedside Creatinine 0.8 Bedside Glucose 85 Total Creatine Kinase 36 Troponin I LESS THAN 0.02 Human Chorionic Gonadotropin, LESS THAN 1 Quant Urine Color YELLOW Urine Turbidity CLEAR Urine pH 5.0 Urine Specific [place] 1.016 Urine Protein NEG Urine Glucose (UA) NEG Urine Ketones NEG Urine Occult Blood MOD Urine Nitrite NEG Urine Bilirubin NEG Urine Urobilinogen LESS THAN 2.0 Urine Leukocyte Esterase NEG Urine RBC 7 Urine Squamous Epithelial 1 Cells Urine Opiates Screen POS Urine Barbiturates Screen NEG Urine Amphetamines Screen NEG Urine Benzodiazepines Screen POS Urine Cocaine Screen NEG Urine Cannabinoids Screen NEG Result Diagram: 11/20/16 1716 Imaging Last [address] 11/20/16 0000 Signed Impressions: Service Date/Time: Sunday, November 20, 2016 17:30 - CONCLUSION: No evidence of acute infarct, hemorrhage, mass or edema. Stable large dilated perivascular spaces in the basal ganglia. Hubert Montero MD Assessment and Plan Problem List: (1) Altered sensorium Status: Acute Plan: Question we etiology. Possibly atypical migraine given that she's had a right-sided headache with some occasional nausea and photophobia for the last 3 days. Try to give med to alleviate the headache without altering her sensorium more. Neurology consult. Further imaging pending. (2) Generalized anxiety disorder Status: Chronic Plan: Continue medication. (3) Major depression Status: Chronic Plan: Continue medication and outpatient follow-up with Dr. Steel (4) Peripheral neuropathy Status: Chronic (5) Migraine headache Status: Chronic Plan: Continue medication. Code Status .full Discussed Condition With Patient, her and ER physician Ulices Landaverde MD PhD Nov 20, 2016 20:46
[2016-11-20] MEDS ORDERED: KETOROLAC TROMETHAMINE 30 MG/ML (IVP) VIAL IV PUSH ONE (21:00)
[2016-11-20] MEDS ORDERED: TOPIRAMATE 100 MG TAB PO SCH (21:00)
[2016-11-20] MEDS ORDERED: ONDANSETRON HCL 4 MG/2 ML VIAL IV PUSH PRN (21:00)
--- NOTE | 2016-11-20 21:18 | RADRPT ---
EXAM DATE/TIME: 11/20/2016 20:42 [facility] COMPARISON: No previous studies available for comparison. INDICATIONS : Confusion. MEDICAL HISTORY : Hypertension. Gastroparesis. Renal insufficiency. SURGICAL HISTORY : Hysterectomy. Bladder sling, bladder interstem placement and removal. ENCOUNTER: Subsequent ACUITY: 1 day PAIN SCORE: 8/10 LOCATION: cranial Please note a normal MRA of the brain does not entirely exclude the possibility of a small aneurysm, nor the possibility of distal intracranial vessel disease. TECHNIQUE: 3D time of flight MRA was performed. Source images, multiplanar STS MIP, and 3D volume MIP reconstru ctions were reviewed. FINDINGS: There is excellent visualization of the major intracranial arteries out to the second-order branch ve ssels. There is no evidence for aneurysm, vessel truncation or stenosis, and no evidence for vascula r malformation. CONCLUSION: Normal examination for a patient of this age. Van Baker MD on November 20, 2016 at 21:12 Board Certified Radiologist. This report was verified electronically.
--- NOTE | 2016-11-20 21:21 | RADRPT ---
EXAM DATE/TIME: 11/20/2016 20:42 [facility] COMPARISON: No previous studies available for comparison. INDICATIONS : Confusion. MEDICAL HISTORY : Hypertension. Gastroparesis. Renal insufficiency. SURGICAL HISTORY : Hysterectomy. Bladder sling, bladder interstem placement and removal, ENCOUNTER: Subsequent ACUITY: 1 day PAIN SCORE: 8/10 LOCATION: Bilateral cranial TECHNIQUE: Multiplanar, multisequence MRI of the brain was performed without contrast. FINDINGS: CEREBRUM: The ventricles are normal for age. No evidence of midline shift, mass lesion, hemorrhage or acute in farction. No extraaxial fluid collections are seen. The pituitary gland and suprasellar cistern are normal in configuration. WHITE MATTER: No significant signal abnormalities are seen in the white matter. POSTERIOR FOSSA: The cerebellum and brainstem are intact. The 4th ventricle is midline. The cerebellopontine angle is unremarkable. The cerebellar tonsils are normal in position. DIFFUSION IMAGING: No focal areas of restricted diffusion are seen. No evidence of acute infarction. EXTRACRANIAL: The visualized portions of the orbits and paranasal sinuses are unremarkable. CONCLUSION: 1. No acute findings. Stable dilated perivascular spaces in the basal ganglia since prior head CT in 2016. No recent infarct. Van Baker MD on November 20, 2016 at 21:17 Board Certified Radiologist. This report was verified electronically.
[2016-11-20 21:46] VITALS: BP 147/58; PULSE 59; RESP 17; TEMP 98.5; O2SAT 97
[2016-11-20] MEDS: GABAPENTIN 400 MG CAP PO SCH (22:04)
--- NOTE | 2016-11-20 22:06 | RADRPT ---
EXAM DATE/TIME: 11/20/2016 21:20 [facility] COMPARISON: No previous studies available for comparison. INDICATIONS : Cerebrovascular accident. MEDICAL HISTORY : Gastroesophageal reflux disease. . Depression. Anxiety. Migraines. Restless leg syndrome. Hiatal hernia. Fibromyalgia. Sleep apnea. Cerebrovascular accident. SURGICAL HISTORY : Appendectomy. Tubal ligation. section. Colporrhaphy. Left knee surgery. Bladder suspension. Hysterectomy. Right carpal tunnel repair. ENCOUNTER: Initial ACUITY: 1 day PAIN SCORE: 5/10 LOCATION: Bilateral neck PEAK SYSTOLIC VELOCITIES (cm/sec): ICA/CCA RATIO: Right: 1.8 Left: 1.7 ICA: Right: 138 Left: 134 CCA: Right: 77 Left: 79 ECA: Right: 71 Left: 44 VERTEBRAL: Right: 36 antegrade Left: 77 antegrade Elevated flow velocities and ICA/CCA ratios have been found to correlate with increased degrees of vessel stenosis, calculated as percentage of diameter relative to a normal segment of distal ICA/CCA FINDINGS: RIGHT CAROTID: No significant stenosis is visualized. The waveforms are within normal limits. LEFT CAROTID: No significant stenosis is visualized. The waveforms are within normal limits. VERTEBRAL ARTERIES: Antegrade flow is seen in both vertebral arteries. MISCELLANEOUS: None. CONCLUSION: 1. Negative for hemodynamically significant stenosis. Mildly increased velocities likely related to v essel tortuosity. Vertebral artery flow antegrade bilaterally. Van Baker MD on November 20, 2016 at 22:03 Board Certified Radiologist. This report was verified electronically.
[2016-11-20] MEDS: BETHANECHOL CHL 25 MG TAB PO SCH (23:04)
[2016-11-20] MEDS: DULoxetine HCl DR 60 MG CAP PO SCH (23:04)
[2016-11-20 23:56] VITALS: BP 138/65; PULSE 76; RESP 18; TEMP 98.6; O2SAT 96
[2016-11-20] MEDS: LORazepam 2 MG/ML VIAL IV PUSH PRN (23:57)
[2016-11-21] VITALS (8 sets, daily range): BP systolic 109–143; BP diastolic 60–74; PULSE 78–104; RESP 16–20; TEMP 97.8–99.1; O2SAT 96–98
[2016-11-21] MEDS: LORazepam 2 MG/ML VIAL IV PUSH PRN ×3 (06:51→19:11)
[2016-11-21] MEDS: BETHANECHOL CHL 25 MG TAB PO SCH ×3 (06:51→21:02)
[2016-11-21] MEDS ORDERED: PNEUMOCOCCAL POLYVALENT INJ 25 MCG/0.5 ML SYR IM ONE (09:00)
[2016-11-21] MEDS: GABAPENTIN 400 MG CAP PO SCH ×2 (09:12→21:02)
[2016-11-21] MEDS: LOSARTAN 25 MG TAB PO SCH (09:12)
[2016-11-21] MEDS: DULoxetine HCl DR 60 MG CAP PO SCH (09:12)
[2016-11-21] MEDS ORDERED: ONDANSETRON HCL 4 MG/2 ML VIAL IV PRN (10:45)
[2016-11-21] MEDS: ACETAMINOPHEN 325 MG TAB PO PRN (10:59)
--- NOTE | 2016-11-21 11:19 | HHI.PR ---
Subjective Remarks Pt reports that she still has a right sided headache She is having some issues with recalling information and does not remember the events that happened at Dr. Sharp's office yesterday She had an EEG this morning but this has not been read by the Neurologist Objective Vitals Vital Signs Date Time Temp Pulse Resp B/P Pulse Ox O2 Delivery O2 Flow Rate FiO2 11/21/16 07:22 99.1 82 20 109/74 96 11/21/16 04:32 98.5 94 17 136/63 98 11/20/16 23:56 98.6 76 18 138/65 96 11/20/16 23:10 18 11/20/16 21:46 98.5 59 17 147/58 97 11/20/16 21:05 18 11/20/16 21:05 18 11/20/16 20:30 70 21 142/79 99 Room Air 11/20/16 17:55 72 28 99 Room Air 11/20/16 17:38 100 Room Air 11/20/16 17:38 100 Room Air 11/20/16 17:23 74 21 134/79 99 Room Air 11/20/16 17:11 82 28 134/79 100 11/20/16 11/20/16 11/21/16 15:00 23:00 07:00 Intake Total 200 ml Balance 200 ml Intake Oral 200 ml # Voids 2 Result Diagram: 11/20/16 1716 Other Results Laboratory Tests Test 11/20/16 11/20/16 11/20/16 11/20/16 17:00 17:16 17:18 17:50 Blood Type O POSITIVE Antibody Screen NEGATIVE White Blood Count 8.2 TH/MM3 Red Blood Count 3.78 MIL/MM3 Hemoglobin 12.6 GM/DL Hematocrit 36.5 % Mean Corpuscular Volume 96.7 FL Mean Corpuscular Hemoglobin 33.2 PG Mean Corpuscular Hemoglobin 34.4 % Concent Red Cell Distribution Width 13.9 % Platelet Count 183 TH/MM3 Mean Platelet Volume 9.1 FL Neutrophils (%) (Auto) 61.3 % Lymphocytes (%) (Auto) 29.6 % Monocytes (%) (Auto) 7.0 % Eosinophils (%) (Auto) 1.8 % Basophils (%) (Auto) 0.3 % Neutrophils # (Auto) 5.0 TH/MM3 Lymphocytes # (Auto) 2.4 TH/MM3 Monocytes # (Auto) 0.6 TH/MM3 Eosinophils # (Auto) 0.2 TH/MM3 Basophils # (Auto) 0.0 TH/MM3 CBC Comment DIFF FINAL Differential Comment Prothrombin Time 9.7 SEC Prothromb Time International 0.9 RATIO Ratio Activated Partial 24.8 SEC Thromboplast Time Fibrinogen 248 mg/dL Bedside Hemoglobin 13.3 G/DL Bedside Hematocrit 39.0 % Erythrocyte Sedimentation Rate 6 mm/hr Bedside Sodium 142 MMOL/L Bedside Potassium 3.5 MMOL/L Bedside Chloride 110 MMOL/L Bedside Blood Urea Nitrogen 15 MG/DL Bedside Creatinine 0.8 MG/DL Bedside Glucose 85 MG/DL Total Creatine Kinase 36 U/L Troponin I LESS THAN 0.02 NG/ML Vitamin B12 Level 446 PG/ML Thyroid Stimulating Hormone 1.180 uIU/ML 3rd Gen Human Chorionic Gonadotropin, LESS THAN 1 Quant MIU/ML Urine Color YELLOW Urine Turbidity CLEAR Urine pH 5.0 Urine Specific [place] 1.016 Urine Protein NEG mg/dL Urine Glucose (UA) NEG mg/dL Urine Ketones NEG mg/dL Urine Occult Blood MOD Urine Nitrite NEG Urine Bilirubin NEG Urine Urobilinogen LESS THAN 2.0 MG/DL Urine Leukocyte Esterase NEG Urine RBC 7 /hpf Urine Squamous Epithelial 1 /hpf Cells Urine Opiates Screen POS Urine Barbiturates Screen NEG Urine Amphetamines Screen NEG Urine Benzodiazepines Screen POS Urine Cocaine Screen NEG Urine Cannabinoids Screen NEG Imaging Last Impressions Head Magnetic Resonance Angiography 11/20/161754 Signed Impressions: Service Date/Time: Sunday, November 20, 2016 20:42 - CONCLUSION: Normal examination for a patient of this age. Van Baker MD Brain MRI 11/20/161754 Signed Impressions: Service Date/Time: Sunday, November 20, 2016 20:42 - CONCLUSION: 1. No acute findings. Stable dilated perivascular spaces in the basal ganglia since prior head CT in 2016. No recent infarct. Van Baker MD Head CT 11/20/16 0000 Signed Impressions: Service Date/Time: Sunday, November 20, 2016 17:30 - CONCLUSION: No evidence of acute infarct, hemorrhage, mass or edema. Stable large dilated perivascular spaces in the basal ganglia. Hubert Montero MD Carotid Artery Ultrasound 11/20/16 Signed Impressions: Service Date/Time: Sunday, November 20, 2016 21:20 - CONCLUSION: 1. Negative for hemodynamically significant stenosis. Mildly increased velocities likely related to vessel tortuosity. Vertebral artery flow antegrade bilaterally. Van Baker MD Objective Remarks General: NAD, alert and oriented but some confusion Chest: CTA Cardiac: Regular Abd:+BS, soft ND/NT Rivero catheter in place, currently with 800mL in the Rivero bag Ext: No edema A/P Problem List: (1) Altered sensorium Status: Acute Plan: - Pt is a 51 y/o female with major depression, generalized anxiety disorder, PTSD, and hx of migraine headaches - She presented to the ED with acute confusion and altered mental status yesterday. - Etiology is unclear. - Pt has reportedly been having issues with headaches for the last few days. - Pt has also had some medication changes recently and was not taking her Duloxetine for the last 5-6 days because she ran out of the medications. - Head CT (11/20) --> No evidence of acute infarct, hemorrhage, mass or edema. Stable large dilated perivascular spaces in the basal ganglia. - MRI Brain (11/20) --> No acute findings. Stable dilated perivascular spaces in the basal ganglia since prior head CT in 2015. No recent infarct. - MRA Brain (11/20) --> Normal examination - Carotid US (11/20) --> Negative for hemodynamically significant stenosis. Mildly increased velocities likely related to vessel tortuosity. Vertebral artery flow antegrade bilaterally. - EEG --> pending. - ESR is 6 - This could possibly be related to atypical migraine given that she's had a right-sided headache with some occasional nausea and photophobia for the last few days. - Will reassess her medications as well given her recent changes which would have contributed to this altered sensorium - Tylenol PRN - Topamax 100mg po BID - Neurology consult is pending. - DVT prophylaxis with SCDs (2) Generalized anxiety disorder Status: Chronic Plan: - Continue medication. (3) Major depression Status: Chronic Plan: - Continue medication and outpatient follow-up with Dr. Steel (4) Peripheral neuropathy Status: Chronic (5) Migraine headache Status: Chronic Plan: - Continue medication. Assessment and Plan Patient examined. Assessment and plan formulated with Alison Hamilton PA-C. I agree with the above. Alison Hamilton Nov 21, 2016 11:19 Santos Siddiqi MD Nov 22, 2016 13:18
[2016-11-21] MEDS ORDERED: KETOROLAC TROMETHAMINE 30 MG/ML (IVP) VIAL IV PUSH ONE (11:30)
[2016-11-21] MEDS ORDERED: ACETAMINOPHEN 1000 MG/100 ML VIAL IV PRN (11:30)
[2016-11-21] MEDS: TOPIRAMATE 100 MG TAB PO SCH ×2 (12:10→21:02)
[2016-11-21] MEDS ORDERED: POLYETHYLENE GLYCOL 17 GM PKG PO PRN (12:15)
[2016-11-21] MEDS ORDERED: methylPREDNISolone SO SUCC INJ 500 MG in DEXTROSE 5% IN WATER 100ML INJ 100 ML IV ONE ×2 (15:00)
[2016-11-21] MEDS: DOCUSATE SODIUM 100 MG CAP PO SCH ×2 (15:19→21:02)
--- NOTE | 2016-11-21 15:44 | EKG ---
Date Performed: 11/20/2016 Time Performed: 18:02:48 PTAGE: 51 years EKG: Sinus rhythm NORMAL ECG PREVIOUS TRACING : 06/11/2016 17.19 DOCTOR: Rusty Rutledge Interpretating Date/Time 11/21/2016 15:40:21
[2016-11-21] MEDS: KETOROLAC TROMETHAMINE 30 MG/ML (IVP) VIAL IV PUSH SCH (18:33)
--- NOTE | 2016-11-21 18:52 | MB ---
cc: ANNA HENDRICKS MD DATE OF CONSULTATION 11/21/16 DATE OF 1965 REASON FOR CONSULTATION Confusional state, migraines. HISTORY OF PRESENT ILLNESS The patient is a 51 year old woman with a history of depression, PTSD, neuropathy, gastroparesis, opiate dependence, anxiety who comes in due to the fact that she was at Dr. Sharp's office for some ulnar pain and developed acute confusion, did not recognize her friend nor her . She did not know why she was there. She came into the hospital and was admitted. Apparently, she follows with Dr. Lloyd, her neurologist, who controls her medications. He has her on topiramate, gabapentin. He took her off the ropinirole due to her gastroparesis. She wants to go back on that. I defer that to her GI. She was placed on Duloxetine recently by psychiatry, ran out of it about five days ago. She is currently on topiramate 50 mg at night. May have been increased to 100. MEDICATIONS Home medicines. Please refer to the chart. ALLERGIES BEE STINGS VITAMIN D DESIPRAMINE FAMILY HISTORY Diabetes, alcoholism. SOCIAL HISTORY Drinks a couple of beers a night. Has not had anything for the last five days. Exercises, for 25 years. Moved here from [place] 40 years ago. Smokes a pack a day. Unemployed. PHYSICAL EXAMINATION VITAL SIGNS: Temperature is 98.6, pulse 78, respiratory rate 17, blood pressure 135/72. NECK: Supple. No appreciable bruits. HEART: Regular. NEUROLOGIC: She is awake, alert. She is oriented and fluent. Pupils reactive. Visual ewing full. Face symmetrical. Tongue midline. Motor: I do not appreciate any weakness, but she has tenderness over fingers four and five on the right with some elbow pain, no leg lag. DTRs are 1+. Toes downgoing. Gait is withheld. LABORATORY DATA B12 446, TSH 1.180. HCG less than one. Coag panel was negative. Toxicology positive for benzos and opiates. Immunology CINTHYA pending. RPR non-reactive. CBC is unremarkable. Sed rate is six. IMAGING STUDIES MRI of the brain nothing acute. MRA [place] and carotid ultrasound unremarkable. IMPRESSION What looks like a complicated migraine. Recommend electroencephalogram. We will continue Topamax 100 mg q 12, give her a dose of Solu-Medrol 500 mg x1, Toradol 30 mg q. 6 for 24 hours, Zanaflex 4 mg b.i.d. If she is feeling fine, she can be discharged home and followed up with her neurologist, GI doctor and primary care physician. EEG results are still pending. MD HASEEB Mackey/ /1:38 PM /6:34 PM
[2016-11-21] MEDS: TEMAZEPAM 15 MG CAP PO PRN (21:02)
--- NOTE | 2016-11-21 22:19 | MG ---
cc: ROB SUMNER M.D., [place] Sex: F REQUESTING PHYSICIAN: Dr. Landaverde. DESCRIPTION: An EEG was obtained on this 51 year-old patient with history of CVA, headaches. The patient is described as awake. This study shows a lot of mid amplitude 8 to 10 per second alpha rhythms in the center and posterior head regions. There are beta rhythms centrally and frontally. There is some intermixed theta activity, at times more prominent on the left than right. The patient is in sleep stage I, and probably some sleep stage II as well during this recording. Photic stimulation and hyperventilation were unremarkable. INTERPRETATION This EEG shows some intermittent left hemisphere slowing of equivocal significance. There is limb twitching without any abnormality. No epileptiform features are present. The EEG is probably normal. Rob Sumner MD [facility] /8:41 PM /10:11 PM
[2016-11-22] VITALS (13 sets, daily range): BP systolic 119–151; BP diastolic 55–77; PULSE 71–103; RESP 15–21; TEMP 97.9–99; O2SAT 97–100
[2016-11-22] MEDS: KETOROLAC TROMETHAMINE 30 MG/ML (IVP) VIAL IV PUSH SCH ×4 (00:05→17:47)
[2016-11-22] MEDS: LORazepam 2 MG/ML VIAL IV PUSH PRN ×3 (05:24→17:47)
[2016-11-22] MEDS: BETHANECHOL CHL 25 MG TAB PO SCH ×3 (05:25→22:55)
[2016-11-22 06:10] LABS: BICARBONATE 23.5 MEQ/L (21.0-32.0); POTASSIUM 3.8 MEQ/L (3.5-5.1)
[2016-11-22] MEDS: DOCUSATE SODIUM 100 MG CAP PO SCH ×2 (08:24→22:54)
[2016-11-22] MEDS: GABAPENTIN 400 MG CAP PO SCH ×2 (08:24→22:54)
[2016-11-22] MEDS: LOSARTAN 25 MG TAB PO SCH (08:24)
[2016-11-22] MEDS: TOPIRAMATE 100 MG TAB PO SCH ×2 (08:25→22:55)
[2016-11-22] MEDS: DULoxetine HCl DR 60 MG CAP PO SCH (08:25)
[2016-11-22 11:13] LABS: ANA SCREEN NEG (NEG)
--- NOTE | 2016-11-22 12:05 | HHI.PR ---
Subjective Remarks pt family present they think she is having some word finding problems and still with some degree of h/a...although better. they admit she gets this way every yr around the anniversary of her daughters Objective Vitals nad heart reg lung cta abd s/nt ext no edema Vital Signs Date Time Temp Pulse Resp B/P Pulse Ox O2 Delivery O2 Flow Rate FiO2 11/22/16 11:24 98.2 80 16 123/59 98 11/22/16 09:58 21 11/22/16 07:20 98.0 98 15 140/67 100 11/22/16 07:00 103 11/22/16 06:34 18 11/22/16 06:17 97.9 71 21 132/70 100 11/22/16 04:05 72 11/22/16 00:15 98.0 77 18 119/55 97 11/22/16 00:10 87 11/21/16 20:33 97.8 102 18 127/60 98 11/21/16 20:15 104 11/21/16 19:33 21 11/21/16 18:58 99.0 80 18 143/62 96 11/21/16 15:59 86 11/21/16 12:10 17 11/21/16 11/21/16 11/22/16 15:00 23:00 07:00 Intake Total 25 ml Balance 25 ml Intake Oral 25 ml # Voids 2 2 Result Diagram: 11/20/16 1716 11/22/16 0427 Imaging Last Impressions Head Magnetic Resonance Angiography 11/20/161754 Signed Impressions: Service Date/Time: Sunday, November 20, 2016 20:42 - CONCLUSION: Normal examination for a patient of this age. Van Baker MD Brain MRI 11/20/161754 Signed Impressions: Service Date/Time: Sunday, November 20, 2016 20:42 - CONCLUSION: 1. No acute findings. Stable dilated perivascular spaces in the basal ganglia since prior head CT in 2016. No recent infarct. Van Baker MD Head CT 11/20/16 0000 Signed Impressions: Service Date/Time: Sunday, November 20, 2016 17:30 - CONCLUSION: No evidence of acute infarct, hemorrhage, mass or edema. Stable large dilated perivascular spaces in the basal ganglia. Hubert Montero MD Carotid Artery Ultrasound 11/20/16 0000 Signed Impressions: Service Date/Time: Sunday, November 20, 2016 21:20 - CONCLUSION: 1. Negative for hemodynamically significant stenosis. Mildly increased velocities likely related to vessel tortuosity. Vertebral artery flow antegrade bilaterally. Van Baker MD A/P Problem List: (1) Altered sensorium Status: Acute Plan: - Pt is a 51 y/o female with major depression, generalized anxiety disorder, PTSD, and hx of migraine headaches - She presented to the ED with acute confusion and altered mental status - Pt has reportedly been having issues with headaches for the last few days. - Pt has also had some medication changes recently and was not taking her Duloxetine for the last 5-6 days because she ran out of the medications. - Head CT (11/20) --> No evidence of acute infarct, hemorrhage, mass or edema. Stable large dilated perivascular spaces in the basal ganglia. - MRI Brain (11/20) --> No acute findings. Stable dilated perivascular spaces in the basal ganglia since prior head CT in 2015. No recent infarct. - MRA Brain (11/20) --> Normal examination - Carotid US (11/20) --> Negative for hemodynamically significant stenosis. Mildly increased velocities likely related to vessel tortuosity. Vertebral artery flow antegrade bilaterally. - EEG --> no obvious sz activity. - ESR is 6 -neurology evaluated the pt...It's believed the pt has a complex migraine. ...I think her sx's are also influenced by stress from her daughter's . Pt was given toradol/solumedrol/muscle relaxer She and family request observation for another night before d/c and they would like neurology to be aware of word finding problems...although I think it is more of a psychological sx - Topamax 100mg po BID - DVT prophylaxis with SCDs (2) Generalized anxiety disorder Status: Chronic Plan: - Continue medication. (3) Major depression Status: Chronic Plan: - Continue medication and outpatient follow-up with Dr. Steel (4) Peripheral neuropathy Status: Chronic (5) Migraine headache Status: Chronic Plan: - Continue medication. Santos Siddiqi MD Nov 22, 2016 12:05
[2016-11-22] MEDS: ACETAMINOPHEN 325 MG TAB PO PRN (20:13)
[2016-11-22] MEDS: TEMAZEPAM 15 MG CAP PO PRN (23:01)
[2016-11-23] MEDS: KETOROLAC TROMETHAMINE 30 MG/ML (IVP) VIAL IV PUSH SCH ×2 (00:26→06:36)
[2016-11-23] MEDS: LORazepam 2 MG/ML VIAL IV PUSH PRN ×2 (00:42→06:45)
[2016-11-23 04:06] VITALS: BP 125/67; PULSE 68; RESP 17; TEMP 98.7; O2SAT 100
[2016-11-23 06:08] VITALS: PULSE 68
[2016-11-23] MEDS: BETHANECHOL CHL 25 MG TAB PO SCH (06:36)
[2016-11-23 07:40] VITALS: BP 137/74; PULSE 83; RESP 16; TEMP 98.3; O2SAT 98
[2016-11-23 08:07] VITALS: O2SAT 97
[2016-11-23] MEDS ORDERED: TOPI1TAB36 PO (08:23)
--- NOTE | 2016-11-23 08:41 | HHI.DCPOC ---
Discharge Care Plan Diagnosis: (1) Migraine headache (2) Generalized anxiety disorder (3) Altered sensorium (4) Major depression (5) Peripheral neuropathy (6) History of hypertension Goals to Promote Your Health * To prevent worsening of your condition and complications * To maintain your health at the optimal level Directions to Meet Your Goals Take your medications as prescribed Follow your dietary instruction Follow activity as directed Keep your appointments as scheduled Take your immunizations and boosters as scheduled If your symptoms worsen call your PCP, if no PCP go to Urgent Care Center or Emergency Room Smoking is Dangerous to Your Health. Avoid second hand smoke Call the 24-hour hour crisis hotline for domestic abuse at Alison Hamilton Nov 23, 2016 08:41
--- NOTE | 2016-11-23 08:59 | HHI.DS ---
Discharge Summary Admission Date Nov 20, 2016 at 19:17 Discharge Date: Nov 23, 2016 Admitting Diagnosis altered sensorium, r/o CVA vs TIA (1) Altered sensorium Diagnosis: Principal (2) Generalized anxiety disorder Diagnosis: Secondary (3) Major depression Diagnosis: Secondary (4) Peripheral neuropathy Diagnosis: Secondary (5) Migraine headache Diagnosis: [facility] Dr. Maritza Mathew - Neurology Brief History This is a 51-year-old female with history of major depression, PTSD and peripheral neuropathy of unknown etiology who presents from her hand surgeon's office after she had an acute episode of confusion. Much of the history is obtained from the and ER physician as patient is still somewhat confused about the events of the last couple of days. According to the , she was being seen and evaluated at Dr. Sharp's office for a follow up appointment for her carpal tunnel surgery and questionable right ulnar nerve dysfunction. Reportedly midway through the exam she developed acute confusion and did not recognize anyone and even did not recognize her . She reportedly wanted to leave the room to go see her mother or some other family member. reports that upon arrival in the ER she seemed much less agitated and confused however is still not at her baseline level. She is holding her right arm in a flexed position stating that it is painful. This is chronic per the . states that over the last 2 days she is complaining the pain from her shoulder up to her back of her neck. He also reported that she was having pain down her arm on the right side. He attributed this to her carpal tunnel surgery. She is on antidepressant and anxiolytic medicines. Recently her duloxetine was switched to every other day by her psychiatrist but she continued to take it daily since she ran out of the medicine approximate 5 days ago. She also is being treated for restless leg syndrome. Reportedly had some perseveration of freezes yesterday. Patient's main complaint now is a right-sided headache which she's had for approximately 3 -4 days. Patient's does confirm that she has had this headache for 3-4 days and has had similar headaches in the past. She is on prophylactic medication for chronic migraine. On exam patient appears somewhat agitated and continues to move her left leg which she attributes to her restless leg syndrome. She is moving her left leg more because she is trying to distract her cell from the current headache she has. She denies any illicit drug use except for occasional marijuana which she has not used in quite some time. She also states that she has not had any alcohol in the last 5 days but generally does drink probably 2 beers each night. CBC/BMP: 11/20/16 1716 11/22/16 0427 Significant Findings Laboratory Tests Test 11/20/16 11/20/16 11/20/16 11/22/16 17:16 17:18 17:50 04:27 Red Blood Count 3.78 MIL/MM3 (4.00-5.30) Prothrombin Time 9.7 SEC (9.8-11.6) Bedside Chloride 110 MMOL/L (98-109) Troponin I LESS THAN 0.02 NG/ML (0.02-0.05) Urine Occult Blood MOD (NEG) Urine RBC 7 /hpf (0-3) Urine Opiates Screen POS (NEG) Urine Benzodiazepines Screen POS (NEG) Chloride Level 114 MEQ/L (98-107) Blood Urea Nitrogen 19 MG/DL (7-18) Estimat Glomerular Filtration 84 ML/MIN (>89) Rate Random Glucose 122 MG/DL (74-106) Imaging Last Impressions Head Magnetic Resonance Angiography 11/20/161754 Signed Impressions: Service Date/Time: Sunday, November 20, 2016 20:42 - CONCLUSION: Normal examination for a patient of this age. Van Baker MD Brain MRI 11/20/161754 Signed Impressions: Service Date/Time: Sunday, November 20, 2016 20:42 - CONCLUSION: 1. No acute findings. Stable dilated perivascular spaces in the basal ganglia since prior head CT in 2016. No recent infarct. Van Baker MD Head CT 11/20/16 0000 Signed Impressions: Service Date/Time: Sunday, November 20, 2016 17:30 - CONCLUSION: No evidence of acute infarct, hemorrhage, mass or edema. Stable large dilated perivascular spaces in the basal ganglia. Hubert Montero MD Carotid Artery Ultrasound 11/20/16 0000 Signed Impressions: Service Date/Time: Sunday, November 20, 2016 21:20 - CONCLUSION: 1. Negative for hemodynamically significant stenosis. Mildly increased velocities likely related to vessel tortuosity. Vertebral artery flow antegrade bilaterally. Van Baker MD PE at Discharge General: NAD, AAOx3 Chest: CTA Cardiac: Regular Abd: +BS, soft ND/NT Ext: No edema Hospital Course Pt is a 51 y/o female with major depression, generalized anxiety disorder, PTSD , and hx of migraine headaches. She presented to the ED with acute confusion and altered mental status. Pt has reportedly been having issues with headaches for the last few days. Pt has also had some medication changes recently and was not taking her Duloxetine for the last 5-6 days because she ran out of the medications. Head CT (11/20) --> No evidence of acute infarct, hemorrhage, mass or edema, stable large dilated perivascular spaces in the basal ganglia. MRI Brain (11/20) --> No acute findings. Stable dilated perivascular spaces in the basal ganglia since prior head CT in 2015. No recent infarct. MRA Brain (11/20) -- > Normal examination. Carotid US (11/20) --> Negative for hemodynamically significant stenosis, mildly increased velocities likely related to vessel tortuosity, vertebral artery flow antegrade bilaterally. EEG --> no obvious sz activity. ESR is 6. Neurology evaluated the pt and it's felt that the pt has a complex migraine headaches. Its likely that her sx's are also influenced by stress from her daughter's . Pt was given Toradol/solumedrol/muscle relaxer. Pts Topamax was increased to 100mg po BID. Pt will need to followup with her PCP, Dr. Edwards, in 1 week Pt will need to followup with her psychiatrist, Dr. Steel, in 1-2 weeks. Pt Condition on Discharge: Stable Discharge Disposition: Discharge Home Discharge Instructions DIET: Follow Instructions for: Heart Healthy Diet Activities you can perform: Regular-No Restrictions Follow up Referrals: PCP Follow-up - [address] Edwards Psychiatry Adult - [address] Steel Changed Medications: Topiramate (Topiramate) 50 Mg Tab 100 MG PO BID Control Seizures #60 Ref 0 TAB (Changed from: HS) Continued Medications: Alprazolam (Alprazolam) 1 Mg Tab 1 MG PO BID ANXIETY Ref 0 TAB Bethanechol (Bethanechol) 25 Mg Tab 25 MG PO Q8HR Urinary Symptom Managemen Ref [address] (Duloxetine DR) 60 Mg Capdr 60 MG PO DAILY #30 Ref 0 CAP Estradiol (Estradiol) 2 Mg Tab 2 MG PO DAILY Estrogen Supplements #30 Ref 0 TAB Gabapentin (Gabapentin) 400 Mg Cap 400 CAP PO BID #30 Ref 0 CAP Losartan (Losartan) 25 Mg Tab 25 MG PO DAILY Blood Pressure Management #30 Ref 0 TAB Ondansetron (Zofran) 4 Mg Tab 4 MG PO Q6HR PRN NAUSEA OR VOMITING #15 Ref 0 TAB Discontinued Medications: Hydrocodone-Acetaminophen (Hydrocodone-Acetaminophen) 10-325 mg Tab 1 TAB PO Q4H PRN PAIN Ref 0 TAB Alison Hamilton Nov 23, 2016 08:58
[2016-11-23] MEDS: LOSARTAN 25 MG TAB PO SCH (09:28)
[2016-11-23] MEDS: GABAPENTIN 400 MG CAP PO SCH (09:28)
[2016-11-23] MEDS: DULoxetine HCl DR 60 MG CAP PO SCH (09:28)
[2016-11-23] MEDS: DOCUSATE SODIUM 100 MG CAP PO SCH (09:28)
[2016-11-23] MEDS: TOPIRAMATE 100 MG TAB PO SCH (09:28)
== END 2016-11-23 12:22 | disposition home or self-care (01) ==
LOC: NEPC 16:18 → NEDH 19:17 → NEPHCDU 21:08
PROVIDERS: ADMIT Hospitalist; ATTEND Hospitalist
DX: G43.109 Migraine with aura, not intractable, without status migrainosus (principal); F41.1 Generalized anxiety disorder; F32.9 Major depressive disorder, single episode, unspecified; G62.9 Polyneuropathy, unspecified; G25.81 Restless legs syndrome; F12.90 Cannabis use, unspecified, uncomplicated; I10 Essential (primary) hypertension; G47.30 Sleep apnea, unspecified; K21.9 Gastro-esophageal reflux disease without esophagitis; F17.210 Nicotine dependence, cigarettes, uncomplicated; F43.10 Post-traumatic stress disorder, unspecified; K31.84 Gastroparesis; Z86.73 Personal history of transient ischemic attack (TIA), and cerebral infarction without residual deficits; M19.90 Unspecified osteoarthritis, unspecified site; Z79.899 Other long term (current) drug therapy
CPT/HCPCS: 51702; 70450; 70544; 70551; 80048; 80307; 81001; 82435; 82550; 82565; 82607; 82947; 84132; 84295; 84443; 84484; 84520; 84702; 85025; 85384; 85610; 85652; 85730; 86038; 86592; 86850; 86900; 86901; 93005; 93880; 95819; 96374; 96375; 96376; 99285; G0378; J1170; J1885; J2060; J2930; J7030; P9612

== ENCOUNTER → 2016-12-20 | Day surgery (SDC) | payer OTHER ==
[~2016-12-20] MED LIST changes: +LACTATED RINGER'S 1000 ML INJ 1,000 ML ONE; +ONABOTULINUMTOXINA INJ 100 UNITS/VIAL ONE; +PROPOFOL 200 MG/20 ML AMP IV ONE; +SODIUM CHLORIDE 0.9% INJ 10 ML ONE
--- NOTE | 2016-12-20 15:30 | GIPROC ---
[facility] [address] [place], [address] EGD PROCEDURE REPORT EXAM DATE: 12/20/2016 PATIENT NAME: Darlene Adams MR #: [id number] BIRTHDATE: 1965 ATTENDING: Melanie Haney MD ORDER #: [id number] SALES REPRESENTATIVE METALS: Teresa Brush RN STATUS: outpatient INDICATIONS: The patient is a 51 yr old female here for an EGD due to epigastric abdominal pain and bloating PROCEDURE PERFORMED: EGD w/ directed submucosal injection(s), any substance MEDICATIONS: None and Per Anesthesia. TOPICAL ANESTHETIC: CONSENT: The patient understands the risks and benefits of the procedure and understands that these risks include, but are not limited to: sedation, allergic reaction, infection, perforation and/or bleeding. Alternative means of evaluation and treatment include, among others: physical exam, x-rays, and/or surgical intervention. The patient elects to proceed with this endoscopic procedure. medical equipment was checked for proper function. Hand hygiene and appropriate measures for infection prevention was taken. After the risks, benefits and alternatives of the procedure were thoroughly explained, Informed consent was verified, confirmed and timeout was successfully executed by the treatment team. The patient was anesthetized with topical anesthesia and the EG-[id number] ([id number]) endoscope was introduced through the mouth and advanced to the second portion of the duodenum. Retroflexed views revealed no abnormalities The gastroscope was then slowly withdrawn and removed. ESOPHAGUS: There was LA Class A esophagitis noted. A biopsy was performed using cold forceps. Sample sent for histology. STOMACH: There was erythematous moderate gastritis at the angularis and in the gastric antrum. Botox injected around the pylorus in 1 cc increments. DUODENUM: The duodenal mucosa appeared normal in the bulb and second portion of the duodenum. ADVERSE EVENTS: There were no complications. IMPRESSIONS: 1. There was LA Class A esophagitis noted; biopsy was performed 2. There was erythematous gastritis at the angularis and in the gastric antrum 3. Normal duodenal mucosa in the bulb and second portion of the duodenum 4. Retroflexed views revealed no abnormalities RECOMMENDATIONS: 1. Await biopsy results. Biopsy results will not be ready for 7-10 days. If you don't hear from us in two weeks, call our office for biopsy results. 2. Anti-reflux regimen 3. Continue PPI PATIENT CONDITION: stable DISPOSITION: Home REPEAT EXAM: Return 1 year EGD pending biopsy results Melanie Haney MD eSigned: Melanie Haney MD 12/20/2016 3:30 PM cc: Yessi Ventura [facility] Luz Maria Edwards M.D. PATIENT NAME: Darlene Adams MR#: [id number]
== END | disposition home or self-care (01) ==
LOC: ESDC 13:05
PROVIDERS: ATTEND Internal Medicine Gastroenterology
DX: R10.13 Epigastric pain (principal); R14.0 Abdominal distension (gaseous); K20.9 Esophagitis, unspecified; K29.70 Gastritis, unspecified, without bleeding
CPT/HCPCS: 00740; 00810; 43236; 43239; 88305; J0585; J3010; J7120

== ENCOUNTER 2017-04-16 19:38 | Emergency (ER) | payer OTHER ==
[~2017-04-16 19:38] MED LIST changes: -LACTATED RINGER'S 1000 ML INJ 1,000 ML ONE; -ONABOTULINUMTOXINA INJ 100 UNITS/VIAL ONE; -PROPOFOL 200 MG/20 ML AMP IV ONE; -SODIUM CHLORIDE 0.9% INJ 10 ML ONE; -TOPI1TAB36 PO; +TOPI50TA7 PO
[2017-04-16 19:40] VITALS: BP 133/62; PULSE 93; RESP 18; TEMP 98.4; O2SAT 99
[2017-04-16 20:03] VITALS: BP 119/84; PULSE 88; RESP 20; O2SAT 99
[2017-04-16] MEDS ORDERED: SUMA100T2 PO (21:13)
[2017-04-16] MEDS ORDERED: PANT40TA3 PO (21:13)
[2017-04-16] MEDS ORDERED: ALBU.5I NEB (21:13)
[2017-04-16] MEDS ORDERED: VENTAER INH (21:13)
[2017-04-16] MEDS ORDERED: CARB25TA9 PO (21:13)
[2017-04-16 21:22] VITALS: BP 136/62; PULSE 93; RESP 20; O2SAT 100
--- NOTE | 2017-04-16 21:22 | PD ---
HPI Chief Complaint: Cold / Flu Symptoms Time Seen by Provider: 21:12 Travel History International Travel<30 days: No Contact w/Intl Traveler<30days: No Traveled to known affect area: No History of Present Illness HPI The patient is a 51-year-old female that has had a cough and nasal congestion for over a month. She was seen at an urgent care center and given Zithromax and benzonatate but neither helped. She has completed a course of both. She denies any fever. She has, likely because of the persistent cough, developed chest pain in the costochondral junctions around her sternum and ribs on the right back. She is not really short of breath. The patient smokes one half pack a day. PFSH Past Medical History Hx Anticoagulant Therapy: No Asthma: No Blood Disorders: No Anxiety: No Depression: No Heart Rhythm Problems: Yes Cancer: No Cardiovascular Problems: No High Cholesterol: No Chemotherapy: No Chest Pain: No Congestive Heart Failure: No COPD: No Cerebrovascular Accident: Yes Diabetes: No Diminished Hearing: No Endocrine: No Fibromyalgia: Yes GERD: Yes Glaucoma: No Genitourinary: Yes (voiding difficulties, had botox shots in groin, mesh surgery) Hepatitis: No Hiatal Hernia: Yes Hypertension: Yes Immune Disorder: No Implanted Vascular Access Dvce: No Musculoskeletal: No Neurologic: Yes (right hand tingles, headaches) Psychiatric: No Reproductive: No Respiratory: No Immunizations Current: No Radiation Therapy: No Sleep Apnea: No Thyroid Disease: No ?: Not Menopausal: Yes Past Surgical History Abdominal Surgery: Yes (EXPLORATORY LAP,APPENDECTOMY) AICD: No Body Medical Devices: INTERSTEM RIGHT BUTTOCK Cardiac Surgery: No Section: Yes Ear Surgery: No Endocrine Surgery: No Eye Surgery: No Genitourinary Surgery: Yes (BLADDER SUSP., URETHRAL DILATION, INTERSTEM PLACEMENT AND REMOVAL) Gynecologic Surgery: Yes (; TAHBSO) Hysterectomy: Yes (Complete) Joint Replacement: No Neurologic Surgery: No Oral Surgery: No Pacemaker: No Thoracic Surgery: No Other Surgery: Yes (hysterectomy, bladder mesh, right hand carpal tunnel surgery) Social History Alcohol Use: Yes (occassionaly ) Tobacco Use: Yes (1 pack ) Substance Use: No Allergies-Medications (Allergen,Severity, Reaction): Coded Allergies: bee venom protein (honey bee) (Verified Allergy, Severe, Anaphylaxis, ) calcipotriene (Verified Allergy, Severe, HIVES, 04/16/17) calcitriol (Verified Allergy, Severe, HIVES, 04/16/17) cholecalciferol (vitamin D3) (Verified Allergy, Severe, HIVES, 04/16/17) ergocalciferol (vitamin D2) (Verified Allergy, Severe, HIVES, 04/16/17) desipramine (Verified Allergy, Intermediate, BLISTERS, 04/16/17) Reported Meds & Prescriptions Reported Meds & Active Scripts Active Topiramate 50 Mg Tab 100 Mg PO BID Zofran (Ondansetron HCl) 4 Mg Tab 4 Mg PO Q6HR PRN Reported Doxycycline Hyclate 100 Mg Cap 100 Mg PO BID Ventolin Hfa 18 GM Inh (Albuterol Sulfate) 90 Mcg/Act Aer 2 Puff INH Q4-6H PRN Albuterol Neb (Albuterol Sulfate) 2.5 Mg/0.5 Ml Neb 2.5 Mg NEB TID NEB PRN Note: The Albuterol Sulfate Inhalation Solution is concentrated and must be diluted. Read complete instructions carefully before using. Sumatriptan (Sumatriptan Succinate) 100 Mg Tab 100 Mg PO ONCE PRN If a satisfactory response has not been obtained at 2 hours, a second dose may be administered Carbidopa-Levodopa 25-100 Mg Tab 1 Tab PO HS Pantoprazole (Pantoprazole Sodium) 40 Mg Tab 40 Mg PO DAILY Bethanechol 25 Mg Tab 25 Mg PO Q8HR Hydrocodone-Acetaminophen 10-325 mg Tab 1 Tab PO Q4H PRN Alprazolam 1 Mg Tab 1 Mg PO BID Estradiol 2 Mg Tab 2 Mg PO DAILY Losartan (Losartan Potassium) 25 Mg Tab 25 Mg PO DAILY Duloxetine DR (Duloxetine HCl) 60 Mg Capdr 60 Mg PO DAILY Review of Systems Except as stated in HPI: all other systems reviewed are Neg Physical Exam Narrative GENERAL: Well-nourished, well-developed patient in no respiratory distress. Her vital signs are normal. Oximetry is 99%. SKIN: Focused skin assessment warm/dry. HEAD: Normocephalic. EYES: No scleral icterus. No injection or drainage. NECK: Supple, trachea midline. No JVD or lymphadenopathy. CARDIOVASCULAR: Regular rate and rhythm without murmurs, gallops, or rubs. I can completely reproduce the patient's chest pain by pressing on the right posterior ribs where she perceives the pain and costochondral junctions where she also perceives the pain. RESPIRATORY: Breath sounds equal bilaterally. No accessory muscle use. Lungs clear to auscultation bilaterally. GASTROINTESTINAL: Abdomen soft, non-tender, nondistended. MUSCULOSKELETAL: No cyanosis, or edema. BACK: Nontender without obvious deformity. No CVA tenderness. Data Data Last Documented VS Vital Signs Date Time Temp Pulse Resp B/P (MAP) Pulse Ox O2 Delivery O2 Flow Rate FiO2 04/16/17 21:22 93 20 136/62 (86) 100 Room Air 04/16/17 19:40 98.4 Orders Orders Influenzae A/B Antigen (04/16/17 21:12) Chest, Pa & Lat (04/16/17 21:12) MDM Medical Decision Making Medical Screen Exam Complete: Yes Emergency Medical Condition: Yes Medical Record Reviewed: Yes Interpretation(s) The chest x-ray is normal and the flu antigen is negative for flu a and flu B. Differential Diagnosis Viral upper respiratory infection, pneumonia, bronchitis, rib fracture, pleural effusion, costochondritis, chest wall pain Narrative Course The patient has a viral upper respiratory infection. She is are been tried on antibiotics without success. Tessalon Perles were tried without success. We will try codeine containing cough syrup, increase liquids and rest and follow up with her primary care physician next week. Plan: Follow-up with her primary care physician next week and she is prescribed codeine containing cough syrup. Diagnosis Primary Impression: Viral URI with cough Additional Instructions: Rest, drink plenty of liquids and discontinue smoking. Follow up with her primary care physician next week. Do not drink alcohol or drive on the codeine containing cough syrup. Med/Other Pt SpecificInfo: Prescription(s) given Scripts Guaifenesin-Codeine Liq (Guaiatussin AC Liq) 100-10 Mg/5 Ml Syrp 10 ML PO Q6H Y for cough, #200 ML Prov: Prashant Paul MD 04/16/17 Disposition: 01 DISCHARGE HOME Condition: Stable Prashant Paul MD Apr 16, 2017 21:22
[2017-04-16] MEDS ORDERED: DOXY100C PO (21:40)
--- NOTE | 2017-04-16 21:41 | RADRPT ---
EXAM DATE/TIME: 04/16/2017 21:16 [place] COMPARISON: CHEST SINGLE AP, February 29, 2016, 16:41. INDICATIONS : Chest pain. MEDICAL HISTORY : Gastroesophageal reflux disease SURGICAL HISTORY : Appendectomy. Tubal ligation. ENCOUNTER: Initial ACUITY: 1 month PAIN SCORE: 5/10 LOCATION: Bilateral chest FINDINGS: The lungs are clear without infiltrate, nodule, or mass. There is no appreciable pleural effusion fo r technique. Heart and mediastinum are unremarkable. CONCLUSION: No acute cardiopulmonary disease. Manuel Merida MD on April 16, 2017 at 21:38 Board Certified Radiologist. This report was verified electronically.
[2017-04-16] MEDS ORDERED: GUAISYP5 PO (21:57)
[2017-04-16] MEDS ORDERED: guaiFENesin/CODEINE SYRUP 200 MG/20 MG/10 ML CUP PO ONE (22:00)
[2017-04-16 22:18] VITALS: BP 137/52
== END 2017-04-16 22:34 | disposition home or self-care (01) ==
LOC: PHED 19:38
DX: J06.9 Acute upper respiratory infection, unspecified (principal); B97.89 Other viral agents as the cause of diseases classified elsewhere; R05 Cough; R07.9 Chest pain, unspecified; I10 Essential (primary) hypertension; K21.9 Gastro-esophageal reflux disease without esophagitis; M79.7 Fibromyalgia; F17.200 Nicotine dependence, unspecified, uncomplicated; Z87.448 Personal history of other diseases of urinary system; Z86.69 Personal history of other diseases of the nervous system and sense organs
CPT/HCPCS: 71046; 87804; 99284

== ENCOUNTER 2017-08-23 06:22 | Observation (INO) | payer OTHER ==
[~2017-08-23] VITALS: Ht 157.5 cm; Wt 49.7 kg
[~2017-08-23 06:22] MED LIST changes: +ALBU.5I NEB; +CARB25TA9 PO; -GABA400C5 PO; +MULT-65 PO; +PANT40TA3 PO; +SUMA100T2 PO; +VENTAER INH
[2017-08-23] MEDS ORDERED: INSULIN HUMAN REGULAR 1,000 UNITS/10 ML VIAL SQ PRN (06:45)
[2017-08-23] MEDS ORDERED: METOPROLOL TARTRATE 25 MG TAB PO PRN (06:45)
[2017-08-23] MEDS ORDERED: POVIDONE IODINE 5% (ANTISEPSIS KIT) 4 APPLICATIONS EACH NARE PRN (06:45)
[2017-08-23] MEDS ORDERED: LACTATED RINGER'S 1000 ML IV PRN (06:45)
[2017-08-23] MEDS ORDERED: CHLORHEXIDINE GLUCONATE 2 % 1 PACK (2 CLOTHS) TOPICAL PRN (06:45)
[2017-08-23] MEDS ORDERED: ceFAZolin 1,000 MG/NS 100 ML IV SCH ×2 (06:45)
[2017-08-23] MEDS ORDERED: SODIUM CHLORID 0.9% 500 ML IV PRN (06:45)
[2017-08-23 07:17] LABS: AUTOMATED NEUTROPHIL # 2.8 TH/MM3 (1.8-7.7); BASOPHIL % 0.5 % (0.0-2.0); EOSINOPHIL # 0.2 TH/MM3 (0-0.4); EOSINOPHIL % 2.6 % (0.0-4.0); HEMATOCRIT 37.8 % (35.0-46.0); HEMOGLOBIN 12.8 GM/DL (11.6-15.3); LYMPH % 45.7 % (9.0-44.0); LYMPHOCYTE # 2.9 TH/MM3 (1.0-4.8); MEAN CELL VOLUME 96.3 FL (80.0-100.0); MEAN CORPUSCULAR HEMOGLOBIN 32.5 PG (27.0-34.0); MEAN CORPUSCULAR HGB CONC 33.8 % (32.0-36.0); MEAN PLATELET VOLUME 8.5 FL (7.0-11.0); MONO % 7.1 % (0.0-8.0); MONOCYTE # 0.5 TH/MM3 (0-0.9); NEUT % 44.1 % (16.0-70.0); PLATELET COUNT 194 TH/MM3 (150-450); RED BLOOD COUNT 3.92 MIL/MM3 (4.00-5.30); RED CELL DISTRIBUTION WIDTH 14.8 % (11.6-17.2); WHITE BLOOD COUNT 6.3 TH/MM3 (4.0-11.0)
[2017-08-23] MEDS ORDERED: ACETAMINOPHEN 1000 MG/100 ML 100 ML IV ONE (08:03)
[2017-08-23] MEDS ORDERED: MIDAZOLAM HCL 2 MG/2 ML VIAL ONE (08:03)
[2017-08-23] MEDS ORDERED: APREPITANT 40 MG CAP ONE (08:10)
[2017-08-23] MEDS ORDERED: ONABOTULINUMTOXINA INJ 100 UNITS/VIAL ONE (08:45)
[2017-08-23] MEDS ORDERED: SUMAtriptan SUCCINATE 50 MG TAB PO PRN (09:30)
[2017-08-23] MEDS ORDERED: ONDANSETRON HCL 4 MG/2 ML VIAL IV PUSH PRN (09:30)
[2017-08-23] MEDS ORDERED: RESP: ALBUTEROL 2.5 MG/3 ML NEB (PRN) NEB (09:30)
[2017-08-23] MEDS ORDERED: DO NOT ADM ANY ANTICOAGULANT DRUGS PRN (09:37)
--- NOTE | 2017-08-23 09:42 | PD.OP ---
Operative Report Date of Surgery: August 23, 2017 Preoperative Diagnosis: Overactive bladder with urge incontinence, microscopic hematuria Postoperative Diagnosis: Same Procedure: Cystoscopy with bilateral retrograde pyelograms, Botox injection to the bladder Anesthesia: General LMA Surgeon: Massimo Smith Headstart Teacher(s): None Resident Surgeon: None Operation and Findings: 51-year-old female with history of overactive bladder and urge incontinence with history of microhematuria elected to undergo cystoscopy with bilateral retrograde pyelogram study, with Botox injection to the bladder. Risk and benefits are discussed preoperatively she is willing to proceed. The patient was brought to the operating room and identified by myself as Darlene Adams. She is placed in the dorsal lithotomy position, prepped and draped in sterile fashion, received preprocedure antibiotics and general LMA anesthesia was administered. 22 [place] cystoscope was inserted in the bladder and the urine cytology was sent to pathology. Mooney cystoscopy did not show any abnormalities. The left ureteral orifice was identified and a 5F open-ended catheter was inserted into the left ureteral orifice and retrograde pyelogram study was performed. This was normal. This was again repeated on the right side. The findings again were normal upper tracts. Using a small needle through the cystoscope, Botox was then injected into the posterior wall in 2 rows. This is done without difficulty. The bladder was evacuated and the scope was removed. She was extubated transferred recovery in stable condition. She tolerated procedure well. Massimo Smith DO August 23, 2017 09:42
[2017-08-23] MEDS: BELLADONNA ALKALOIDS/OPIUM 60 MG SUPP RECTAL SCH ×3 (10:00→23:58)
[2017-08-23] MEDS: SODIUM CHLOR 0.9% 1000 ML INJ 1,000 ML IV SCH ×2 (10:10→21:25)
[2017-08-23] MEDS: oxyCODONE/ACETAMINOPHEN 10 MG/325 MG TAB PO PRN ×3 (10:23→21:47)
[2017-08-23] MEDS ORDERED: ALBUTEROL SULFATE 90 MCG/ACT HFA 8 GM INHALER INH PRN (11:00)
[2017-08-23] MEDS: PHENAZOPYRIDINE HCL 100 MG TAB PO SCH ×2 (11:00→21:42)
[2017-08-23 11:57] VITALS: BP 126/61; PULSE 70; RESP 16; TEMP 96.7; O2SAT 96
[2017-08-23] MEDS ORDERED: SUCCINYLCHOLINE CHLORIDE 100 MG/5 ML SYRINGE IV PUSH ONE (12:00)
[2017-08-23] MEDS ORDERED: LIDOCAINE HCL 1% PF 5 ML SYRINGE OTHER ONE (12:00)
[2017-08-23] MEDS ORDERED: PHENYLEPH/NS 1000 MCG/10 ML SYR IV ONE (12:00)
[2017-08-23] MEDS ORDERED: SODIUM CHLORIDE 0.9% 10 ML VIAL IV FLUSH ONE (12:00)
[2017-08-23] MEDS ORDERED: NEOSTIGMINE 5 MG/5 ML SYRINGE IV PUSH ONE (12:00)
[2017-08-23] MEDS ORDERED: GLYCOPYRROLATE 1 MG/5 ML SYRINGE IV PUSH ONE (12:00)
[2017-08-23] MEDS ORDERED: PROPOFOL 200 MG/20 ML AMP IV ONE (12:00)
[2017-08-23] MEDS ORDERED: DEXAMETHASONE SOD PHOS 4 MG/ML VIAL IV ONE (12:00)
[2017-08-23] MEDS ORDERED: KETOROLAC TROMETHAMINE 30 MG/ML (IVP) VIAL IV PUSH ONE (12:00)
[2017-08-23] MEDS ORDERED: ROCURONIUM INJ 50 MG/5 ML SYRINGE IV PUSH ONE (12:00)
[2017-08-23] MEDS ORDERED: ONDANSETRON HCL 4 MG/2 ML VIAL IV PUSH ONE (12:00)
[2017-08-23] MEDS ORDERED: ePHEDrine/NS 25 MG/5 ML SYRINGE IV ONE (12:00)
[2017-08-23] MEDS ORDERED: IOHEXOL 300 MG/ML 50 ML BTL (for RAD DIAG) IVCONTRAST ONE (12:00)
[2017-08-23] MEDS ORDERED: ZOLPIDEM TARTRATE 10 MG TAB PO PRN (13:00)
[2017-08-23] MEDS ORDERED: ALPRAZolam 1 MG TAB PO ONE ×2 (13:00→17:45)
[2017-08-23 16:44] VITALS: BP 101/55; PULSE 64; RESP 16; TEMP 98; O2SAT 98
[2017-08-23] MEDS ORDERED: ONDANSETRON ODT 4 MG TAB SL PRN (18:00)
[2017-08-23 20:44] VITALS: BP 94/49; PULSE 60; RESP 16; TEMP 97.7; O2SAT 99
[2017-08-23] MEDS ORDERED: CARBIDOPA/LEVODOPA 25 MG/100 MG TAB PO SCH (21:00)
[2017-08-23] MEDS ORDERED: TOPIRAMATE 200 MG TAB PO SCH (21:00)
[2017-08-23] MEDS: ALPRAZolam 1 MG TAB PO SCH (21:41)
[2017-08-23 23:51] VITALS: BP 93/55; PULSE 60; RESP 16; TEMP 97.8; O2SAT 98
[2017-08-24] MEDS: oxyCODONE/ACETAMINOPHEN 10 MG/325 MG TAB PO PRN ×2 (01:58→05:32)
[2017-08-24 03:49] VITALS: BP 107/55; PULSE 66; RESP 16; TEMP 98; O2SAT 97
[2017-08-24] MEDS: BELLADONNA ALKALOIDS/OPIUM 60 MG SUPP RECTAL SCH (05:31)
--- NOTE | 2017-08-24 08:04 | HHI.PR ---
Subjective Patient symptoms today Pt seen and examined. Did not sleep well. Objective Vital Signs Vital Signs Date Time Temp Pulse Resp B/P (MAP) Pulse Ox O2 Delivery O2 Flow Rate FiO2 08/24/17 03:49 98.0 66 16 107/55 (72) 97 08/24/17 02:58 20 08/23/17 23:51 97.8 60 16 93/55 (68) 98 08/23/17 20:44 97.7 60 16 94/49 (64) 99 08/23/17 16:44 98.0 64 16 101/55 (70) 98 08/23/17 11:57 96.7 70 16 126/61 (82) 96 08/23/17 11:26 98.8 65 17 114/57 (76) 100 Room Air 08/23/17 11:00 65 22 119/54 (75) 100 Room Air 08/23/17 10:15 61 22 120/56 (77) 100 Room Air 08/23/17 10:00 62 22 115/55 (75) 100 Room Air 08/23/17 09:45 73 17 121/60 (80) 100 Room Air 08/23/17 09:36 97.9 93 18 140/77 (98) 100 Room Air Result Diagram: 08/23/17 0659 Objective Remarks Abd:soft,nt,nd Voiding well Medications and IVs Current Medications Medications (Trade) Dose Ordered Sig/Trice Route Start Time Stop Time Status Last Admin Cefazolin Sodium 1000 mg/Sodium Chloride 100 ml @ 200 mls/hr MANAGER OF PHARMACY IV 08/23/17 06:45 08/26/17 06:44 08/23/17 08:05 Lactated Ringer's 1,000 ml @ 30 mls/hr Q24H PRN IV 08/23/17 06:45 08/26/17 06:44 08/23/17 06:55 Sodium Chloride 500 ml @ 30 mls/hr [id number] PRN IV 08/23/17 06:45 08/26/17 06:44 (Lopressor) 25 mg MANAGER OF PHARMACY PRN PO 08/23/17 06:45 08/26/17 06:44 (Betadine 5% Antisepsis Kit) 1 applic MANAGER OF PHARMACY PRN EACH NARE 08/23/17 06:45 08/26/17 06:44 08/23/17 07:12 (Chlorhexidine 2% Cloth) 3 pack MANAGER OF PHARMACY PRN TOPICAL 08/23/17 06:45 08/26/17 06:44 08/23/17 06:45 (NovoLIN R INJ) See Protocol Table ... MANAGER OF PHARMACY PRN SQ 08/23/17 06:45 08/26/17 06:44 Sodium Chloride 1,000 ml @ 84 mls/hr [id number] IV 08/23/17 09:30 08/23/17 21:25 (Cymbalta Dr) 60 mg DAILY PO 08/24/17 09:00 (Cozaar) 25 mg DAILY PO 08/24/17 09:00 (Xanax) 1 mg BID PO 08/23/17 21:00 08/23/17 21:41 (Percocet 10-325 Mg) 1 tab Q4H PRN PO 08/23/17 09:30 08/24/17 05:32 (Protonix) 40 mg DAILY PO 08/24/17 09:00 (Sinemet 25-100 Mg) 1 tab HS PO 08/23/17 21:00 08/23/17 21:42 (Imitrex) 100 mg UNSCH PRN PO 08/23/17 09:30 (Albuterol Neb) 2.5 mg Q6HR NEB PRN NEB 08/23/17 09:30 (Proair Hfa Inh) 2 puff Q6H PRN INH 08/23/17 11:00 Cefazolin Sodium 1000 mg/Sodium Chloride 100 ml @ 200 mls/hr Q8H IV 08/23/17 15:00 08/24/17 05:32 (B & O Supp) 60 mg Q6HR RECTAL 08/23/17 12:00 08/24/17 05:31 ([facility] ALL NURSING DEPARTME... UNSCH PRN .XX 08/23/17 09:37 08/24/17 09:36 (Pyridium) 100 mg BID PO 08/23/17 11:00 08/23/17 21:42 (Ambien) 10 mg HS PRN PO 08/23/17 13:00 08/23/17 21:47 (Pneumovax-23 Inj) 25 mcg ONCE ONCE IM 08/24/17 10:00 08/24/17 10:01 (Flu (Quadrivalent) Vaccine Inj) 0.5 ml ONCE ONCE IM 08/24/17 10:00 08/24/17 10:01 (Zofran Odt) 4 mg Q6H PRN SL 08/23/17 18:00 08/23/17 18:14 (Topamax) 100 mg Q12HR PO 08/24/17 09:00 Assessment and Plan Assessment and Plan Stable s/p botox to bladder Discharge home F/U as outpt. Massimo Smith DO August 24, 2017 08:04
[2017-08-24 08:34] VITALS: BP 113/56; PULSE 61; RESP 20; TEMP 98.3; O2SAT 99
[2017-08-24] MEDS ORDERED: LOSARTAN 25 MG TAB PO SCH (09:00)
[2017-08-24] MEDS ORDERED: DULoxetine HCl DR 60 MG CAP PO SCH (09:00)
[2017-08-24] MEDS ORDERED: PANTOPRAZOLE SOD 40 MG DELAYED RELEASE TAB PO SCH (09:00)
[2017-08-24] MEDS ORDERED: TOPIRAMATE 100 MG TAB PO SCH (09:00)
[2017-08-24] MEDS: ALPRAZolam 1 MG TAB PO SCH (09:01)
[2017-08-24] MEDS: PHENAZOPYRIDINE HCL 100 MG TAB PO SCH (09:02)
[2017-08-24] MEDS: SODIUM CHLOR 0.9% 1000 ML INJ 1,000 ML IV SCH (09:20)
[2017-08-24] MEDS ORDERED: PNEUMOCOCCAL POLYVALENT INJ 25 MCG/0.5 ML SYR IM ONE (10:00)
[2017-08-24] MEDS ORDERED: INFLUENZA VIRUS VACCINE (QUADRIVALENT) 0.5 ML SYR IM ONE (10:00)
[2017-08-24 11:45] VITALS: BP 100/49; PULSE 56; RESP 16; TEMP 98; O2SAT 99
== END 2017-08-24 13:56 | disposition home or self-care (01) ==
LOC: HSDC 06:22 → HSDI 09:37 → NEPGCP 12:57
PROVIDERS: ADMIT Urology; ATTEND Urology
DX: N32.81 Overactive bladder (principal); R31.29 Other microscopic hematuria; N39.41 Urge incontinence; Z23 Encounter for immunization
CPT/HCPCS: 00910; 52287; 74420; 85025; 88112; 90732; 96365; 96366; 96375; C1769; G0008; G0009; G0378; J0131; J0330; J0690; J1100; J1885; J2250; J2370; J2405; J2710; J7030; J7120; Q2038; Q9967; 90471; 90472; 90686; J0585; J8501